=== PATIENT | female | born 1990 | race Caucasian/White ===

== ENCOUNTER → 2024-05-03 | Outpatient (CLI) | payer OTHER, SELFPAY ==
[2024-05-03 11:33] LABS: HIV - WCH Non-Reactive (Nonreactive); Hepatitis B Surface Antigen Non-Reactive (Nonreactive); Hepatitis C Antibody Non-Reactive (Nonreactive); Rubella IgG Reactive (Nonreactive); Syphilis Antibodies Non-reactive
== END | disposition home or self-care (01) ==
PROVIDERS: Referring Provider Obstetrics & Gynecology; Visit Provider Obstetrics & Gynecology
DX: O09.90 Supervision of high risk pregnancy, unspecified, unspecified trimester (principal); Z3A.00 Weeks of gestation of pregnancy not specified
CPT/HCPCS: 36415; 86703; 86762; 86780; 86803; 87340

== ENCOUNTER → 2024-06-30 | Outpatient (CLI) | payer OTHER, SELFPAY ==
[2024-06-30 15:37] LABS: Absolute Lymphocyte Count 1.12 X10^3/uL (0.83-4.51); Absolute Neutrophil Count 5.9 X10^3/uL (2.0-7.7); Basophil# 0.02 X10^3/uL; Basophil% 0.3 % (0-1); Eosinophil# 0.06 X10^3/uL; Eosinophils% 0.8 % (0-5); Hematocrit 36.8 % (37-47); Hemoglobin 12.1 g/dL (12.0-15.0); Lymphocyte # 1.12 X10^3/ul (0.83-4.51); Lymphocyte % 14.8 % (19-41); Mean Corp Hgb Conc 32.9 g/dL (32-36); Mean Corpuscular Hgb 29.7 pg (27.0-32.0); Mean Corpuscular Volume 90.4 fL (81-99); Mean Platelet Vol. 9.7 fl (6.2-12.0); Monocyte# 0.41 X10^3/uL; Monocyte% 5.4 % (0-10); NRBC Flagged by Analyzer 0 % (0-5); Neutrophil # 5.91 X10^3/uL (2.7-7.7); Neutrophil % 78.2 % (47-70); Platelet Count 200 K/mm3 (150-450); RBC Distribution Width CV 13.9 % (11.6-14.6); RBC Distribution Width SD 46.3 fl (35.1-43.9); Red Blood Count 4.07 M/mm3 (4.2-5.4); White Blood Count 7.6 K/mm3 (4.4-11.0)
[2024-06-30 15:52] LABS: Glucose Challenge Gest 1H 50g 105 mg/dL (70-140)
[2024-06-30 18:00] LABS: HIV - WCH Non-Reactive (Nonreactive); Syphilis Antibodies Non-reactive
== END | disposition home or self-care (01) ==
LOC: BWCLAB 14:42
PROVIDERS: Referring Provider Obstetrics & Gynecology; Visit Provider Obstetrics & Gynecology
DX: O09.90 Supervision of high risk pregnancy, unspecified, unspecified trimester (principal); Z3A.00 Weeks of gestation of pregnancy not specified; Z13.1 Encounter for screening for diabetes mellitus
CPT/HCPCS: 36415; 82950; 85025; 86703; 86780

== ENCOUNTER → 2024-08-23 | Outpatient (CLI) | payer OTHER, SELFPAY ==
[2024-08-23 16:19] LABS: Protein, Urine (Random) 90.8 mg/dL (<11.9); Protein:Creat Ratio 232 mg/g CRE (0-200)
== END | disposition home or self-care (01) ==
LOC: LABSPEC 15:44
PROVIDERS: Referring Provider Advanced Practice Midwife; Visit Provider Advanced Practice Midwife
DX: R80.9 Proteinuria, unspecified (principal)
CPT/HCPCS: 82570; 84156

== ENCOUNTER 2024-09-04 13:20 | Inpatient (IN) | payer OTHER, SELFPAY ==
[2024-09-04] VITALS (40 sets, daily range): BP systolic 133–194; BP diastolic 72–109; PULSE 55–99; RESP 12–19; TEMP 35.7–37.2; O2SAT 96–100; BMI 44.0
[2024-09-04 12:58] LABS: Hematocrit 39.4 % (37-47); Hemoglobin 13.4 g/dL (12.0-15.0); Mean Corpuscular Volume 88.1 fL (81-99); Mean Platelet Vol. 11.2 fl (6.2-12.0); Platelet Count 203 K/mm3 (150-450); RBC Distribution Width SD 41.7 fl (35.1-43.9); Red Blood Count 4.47 M/mm3 (4.2-5.4); White Blood Count 8.9 K/mm3 (4.4-11.0)
[2024-09-04] MEDS: Magnesium Sulfate 4gm/100mL 4 GM/100 ML IV.SOLN. IV (13:22)
[2024-09-04 13:26] LABS: AST(SGOT) 17 U/L (15-37); Alanine Aminotransfer ALT/SGPT 20 U/L (13-56); Creatinine, Serum 0.97 mg/dL (0.55-1.02); EST Glomerular Filtration Rate 69 mL/min (>60); Est Glom Filt Rate - Afr Amer 84 mL/min (>60); Uric Acid 6.5 mg/dL (2.6-6.0)
[2024-09-04] MEDS: hydrALAZINE 20 MG/ML Vial 10 MG IV (13:38)
[2024-09-04] MEDS: Magnesium Sulfate 4gm/100mL 2 GM/50 ML IV.SOLN. IV (13:39)
[2024-09-04 13:53] LABS: Protein:Creat Ratio 5495 mg/g CRE (0-200)
--- NOTE | 2024-09-04 14:25 | PRE.ANES_ITS ---
ASA Classification* ASA Classification ASA Classification: 3 Assessment & Plan Anesthesia* Anesthesia Assessment Anesthesia Assessment: Discussed sedation and/or anesthesia options, risks, benefits, and alternatives with patient/parents/legal guardian/POA. Questions invited. The patient/parents/legal guardian/POA seems to understand and agrees to proceed with anesthesia plan. Reviewed the physical assessment, medical history, allergy history and patient home medications list prior to surgery/procedure/anesthetic and documented any changes. Performed airway and anesthesia risk assessments. Anesthesia Type Anesthesia Type: Spinal History Source History Obtained from:: Patient Anesthesia Focused Assessment* Temperature: 99.0 F Pulse Rate: 99 Blood Pressure: 167/84 Respiratory Rate: 16 Pulse Ox: 99 Oxygen Delivery Method: Room Air Airway Assessment Mouth opens: 2 cm Mallampati Score: II Teeth Condition: Intact Neck Range of motion (ROM): Full ROM Focused Labs Anesthesia Preop lab: CBC WBC 8.9 K/mm3 (4.4-11.0) 09/04/24 12:45 RBC 4.47 M/mm3 (4.2-5.4) 09/04/24 12:45 Hgb 13.4 g/dL (12.0-15.0) 09/04/24 12:45 Hct 39.4 % (37-47) 09/04/24 12:45 Plt Count 203 K/mm3 (150-450) 09/04/24 12:45 CHEMISTRY Creatinine 0.97 mg/dL (0.55-1.02) 09/04/24 12:45 COAG Pre-Assessment Diagnosis/Proposed Procedure Planned Operative Procedure(s): c section Anesthesia History 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 When Was Last Pacemaker Check QUESTION #4 FULL TEXT: You/Your Family Experience fever (hyperthermia) with Anesthesia Any additional information?: No Last Oral Intake Last Oral intake: Last Oral Intake NPO since Meds taken in AM with sips of water? Meds patient instructed to take am of surgery Any additional information?: Yes NPO since: 10:00 PONV PONV - production maintenance technician: PONV - production maintenance technician Female HX of Motion Sickness HX of N/V After Surgery Non-Smoker Duration of Surgery greater than 60 minutes Number of Risk Factors PONV Score Any additional information?: No Height & Weight Height & Weight: Anesthesia: Height & Weight Height 5 ft 2 in 08/23/24 15:16 Respiratory Assessment Respiratory Assessment - production maintenance technician: Respiratory Tract Infection Hx - production maintenance technician Hx Respiratory Tract Infection Any additional information?: No STOP Sleep Apnea STOP Sleep Apnea - production maintenance technician: STOP Sleep Apnea - production maintenance technician Hx Hypertension Hx Sleep Apnea CPAP BIPAP Do you snore loudly (louder than talking or can be heard Do you often feel tired/ fatigued/ sleepy during daytime? Has anyone observed you stop breathing during sleep? STOP Results QUESTION #5 FULL TEXT : Do you snore loudly (louder than talking or can be heard through closed doors)? Any additional information?: No Tobacco Use History Tobacco Use History - production maintenance technician: Tobacco Use History - production maintenance technician Tobacco Use Smoking Status Never smoker 04/15/24 12:22 Hx Tobacco Use Years Smoking Packs Smoked per Day Smoking Cessation Date was within the last 15 years Hx Smoking Cessation Date Hx Smoking Cessation Counseling Any additional information?: No Hematologic Medial History Hematologic Hx - production maintenance technician: Hematologic Medical Hx - certified drug counselor Hx of Blood Transfusion Hx of Transfusion in last 3 Months Date of Last Transfusion (if within last 3 months) Ever experience any problems with transfusion(s)? Specify any problems Hx of Preganancy in last 3 Months Nurse Filling Out Transfusion & Questions: Date: Time: Patient unable to answer at this time (ie. confused, unrespo Any additional information?: No /Reproduction History /Reproductive History - production maintenance technician: /Reproductive Hx- production maintenance technician Hx Now Gestational Age (in weeks): EDC: Hx Hx Para Hx Section SAB No 08/23/24 15:16 Any additional information?: Yes Hx Now: Yes : Yes Active Medications Active Medications: Current Medications Generic Name Dose Route Start Last Admin Trade Name Freq PRN Reason Stop Dose Admin Hydralazine HCl 10 mg 09/04/24 13:22 Hydralazine 20 Mg/Ml Vial IV X1 PRN Elevated BP Calcium Gluconate 1 gm/ N/A 10 mls @ 2 mls/min 01/12/25 13:22 IV X1 PRN Magnesium Toxicity Magnesium Sulfate 20 gm in 500 mls @ 50 mls/hr 09/04/24 13:25 20gm/500ml IV .Q10H TACHO Protocol 2 GM/HR Labetalol HCl 20 mg 09/04/24 13:22 Labetalol 20mg/4ml Syringe IV X1 PRN Elevated BP Labetalol HCl 40 mg 09/04/24 13:22 Labetalol 100 Mg/20 Ml Vial IV X1 PRN Elevated BP Midazolam HCl 2 mg 09/04/24 13:22 Midazolam 2 Mg/2 Ml Syringe IV X1 PRN Seizure Activity [facility] Medical History Dermoid cyst Peritoneal bleeding Home Medications ?Medication ?Instructions ?Recorded ?Last Taken ?Type aspirin 81 mg chewable tablet 81 mg PO DAILY 04/15/24 Unknown History docosahexaenoic acid 200 mg mg PO 04/15/24 Unknown History capsule ( DHA) naltrexone 1.5 mg capsule mg PO 04/15/24 Unknown History Allergy/AdvReac Type Severity Reaction Status Date / Time chlorhexidine (From Allergy Intermediate Rash Verified 08/23/24 15:18 ChloraPrep Clear) Family History Father Testicle cancer Mother Hypothyroid Grandmother Diabetes Type 2 Grandmother Scoliosis Surgical History H/O cervical polypectomy H/O laparoscopy S/P ACL repair H/O section Social History adopted: No household members: spouse and children number of children: 1 current occupational status: employed 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 current occupational exposures/hazards: No pets and animals: Yes ( taking care of litter box) pets and animals: cat(s) history of recent travel: No sexually active: Yes Smoking Status: Never smoker alcohol intake: current alcohol intake frequency: holidays/special occasions only details: none while substance use type: does not use well-balanced diet: daily or most days caffeine: Yes Type: coffee eating out: rarely or never during the past year weight has: increased > 10 lbs what type of physical activity do you participate in: yoga frequency: 3-4 times per week duration: 45-60 minutes/day jack/confucianism: Confucianist seatbelt use: always do you feel safe at home: Yes additional social history: : [employer] - [employer] Review of Systems (Anesthesia) ROS Narrative System reviewed and no additional complaints, except as documented.
[2024-09-04] MEDS: Lactated Ringers 1,000 ML 999 ML IV (14:30)
[2024-09-04] MEDS: Acetaminophen 500 MG Tablet 1000 MG PO ×2 (14:37→21:17)
[2024-09-04] MEDS: Magnesium Sulfate 20 GM/500 ML BAG IV ×2 (14:38→14:48)
[2024-09-04] MEDS: Sodium Citrate/Citric Acid 30 ML UDC PO (14:38)
[2024-09-04] MEDS: Cefazolin 2 GM in Syringe IV (15:00)
[2024-09-04 16:01] LABS: Syphilis Antibodies Non-reactive
--- NOTE | 2024-09-04 16:09 | HP.PCM.OB_ITS ---
HPI - General General Date of Admission: 09/04/24 HPI Narrative KRISTIN SUAREZ, is a 33 F who presents at 35 weeks with swelling in her hands face and feet, [facility] 170s ove r100s. here they are 180s over 100s. we are proceeding with RLTCS for severe preeclampsia Maternal Data Information YAZMIN Calculator Estimated Delivery Date Method Current WG Current Estimate 10/03/24 Manual 35w 6d Transfer da te 01/16/24 PFSH PFS Medical History Dermoid cyst Peritoneal bleeding Home Medications ?Medication ?Instructions ?Recorded ?Last Taken ?Type aspirin 81 mg chewable tablet 81 mg PO DAILY 04/15/24 Unknown History docosahexaenoic acid 200 mg mg PO 04/15/24 Unknown History capsule ( DHA) naltrexone 1.5 mg capsule mg PO 04/15/24 Unknown History Allergy/AdvReac Type Severity Reaction Status Date / Time chlorhexidine (From Allergy Intermediate Rash Verified 08/23/24 15:18 ChloraPrep Clear) Family History Father Testicle cancer Mother Hypothyroid Grandmother Diabetes Type 2 Grandmother Scoliosis Surgical History H/O cervical polypectomy H/O laparoscopy S/P ACL repair H/O section Social History adopted: No household members: spouse and children number of children: 1 current occupational status: employed 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 current occupational exposures/hazards: No pets and animals: Yes ( taking care of litter box) pets and animals: cat(s) history of recent travel: No sexually active: Yes Smoking Status: Never smoker alcohol intake: current alcohol intake frequency: holidays/special occasions only details: none while substance use type: does not use well-balanced diet: daily or most days caffeine: Yes Type: coffee eating out: rarely or never during the past year weight has: increased > 10 lbs what type of physical activity do you participate in: yoga frequency: 3-4 times per week duration: 45-60 minutes/day jack/adventist: Confucianist seatbelt use: always do you feel safe at home: Yes additional social history: : [employer] - [employer] History 2 Elective abortions Hx Para 1 Spontaneous abortions Hx # Term Pregnancies 1 Ectopic pregnancies Hx # Pregnancies Multiple births # of living children 1 Past Pregnancies Del. Date Name GA/Weeks Outcome Route Bth Weight Infant Gen Labor Lgth Anesthesia Del Locatn Provider FOB 08/22/19 [place] 39 live - full term 8lbs 14oz Male spinal [facility] Bobby Boyd 11/22/22 Failed IVF transfer Delivery Date: 08/22/19 Last Updated by: Desire Ponce RN Breech Visit Details Expected Delivery Route/Plan plan RLTCS if spontaneous labor, RLTCS or IOL 39 if not. chance of success is 55.7% Labor Preferences- CB/BF classes: [] labor support person: [] labor intervention preferences: [] pain management options preferred: [] cut cord/dad catch: [] : [] PP control planned: [] discussed possible routes of delivery and associated risks: [] special requests: [] Plans Covid status: [] Flu vaccine: given Tdap vaccine: given Rhogam: na LARC form signed: declined movement and labor precautions reviewed. Problem list reviewed and updated with the most current plan of care details and appropriate orders placed. Relevant counseling for the gestational age provided. Continue routine care and follow up unless otherwise noted in visit notes/problem list details OB Flowsheet Initial Weight: Not Recorded Date -?-?-?-?-?-?-?-?-?-?-?-?- EGA Weight BP Urine Prot -?-?-?-?-?-?-?-?-?-?-?-?- Glucose FHR FuHt Pres Dilation -?-?-?-?-?-?-?-?-?-?-?-?- Effaced St Visit Note 05/03/24 -?-?-?-?-?-?-?-?-?-?-?-?- 18w 1d 192 lb 120/77 Negative -?-?-?-?-?-?-?-?-?-?-?-?- Negative 150 -?-?-?-?-?-?-?-?-?-?-?-?- SM- no vb crmapi ng, [facility] 06/03/24 -?-?-?-?-?-?-?-?-?-?-?-?- 22w 4d 201 lb 103/72 Negative -?-?-?-?-?-?-?-?-?-?-?-?- Negative 144 -?-?-?-?-?-?-?-?-?-?-?-?- JV- anatomy scan was incomplete. Has c/o not sleeping well. questions about flu vaccine and questions about success. 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 tdap today. has cs scheduled incase does not happen. 07/25/24 -?-?-?-?-?-?-?-?-?-?-?-?- 30w 0d 207 lb 111/72 Negative -?-?-?-?-?-?-?-?-?-?-?-?- Negative 140 31 -?-?-?-?-?-?-?-?-?-?-?-?- SM- no vb lof go od fm no regular ctx larc signed 08/11/24 -?-?-?-?-?-?--?-?-?-?-?-?- 32w 3d 212 lb 6 oz 114/79 Nega tive -?-?-?-?-?-?-?-?-?-?-?-?- Negative 133 32 -?-?-?-?-?-?-?-?-?-?-?-?- JV- no lof, vagi nal bleeding, or dec fm. had growth scan today. pending. 08/18/24 -?-?-?-?-?-?-?-?-?-?-?-?- 33w 3d 217 lb 6 oz 115/76 Nega tive -?-?-?-?-?-?-?-?-?-?-?-?- Negative 141 33 -?-?-?-?-?-?-?-?-?-?-?-?- -work in for ? enlarged lymph node bilateral axilla. Noting more swelling lower legs, fingers, lips. No pitting edema. States lots of sodium intake with holidays. No vision changes, headaches. Peasized mobile lymph node each axilla. Just finished antibiotic for resp infection/reassured Call if increase size/persists and get U S. 08/23/24 -?-?-?-?-?-?-?-?-?-?-?-?- 34w 1d 218 lb 6 oz 117/80 -?-?-?-?-?-?-?-?-?-?-?-?- 135 34 -?-?-?-?-?-?-?-?-?-?-?-?- KW- No vb/lof/ct x. good fm. no urban/dizziness/BV. pc ratio sent but had GI bug over the last week. NST FHR Rate Baby A Baseline: 130 Variability:: Moderate Accelerations:: 15 x 15 Decelerations:: None NST Reactive:: Yes FHR Category:: Category I Uterine Activity:: irregular ROS Constitutional Constitutional: Reports systems reviewed and no addt'l complaints, except as documented Eyes Eyes: Denies change in vision ENT HEENT: Reports systems reviewed and no addt'l complaints, except as documented; Denies headache(s) Cardiovascular Cardiovascular: Reports systems reviewed and no addt'l complaints, except as documented; Denies chest pain or dyspnea Respiratory/Chest Respiratory/Chest: Reports systems reviewed and no addt'l complaints, except as documented Gastrointestinal Gastrointestinal: Reports systems reviewed and no addt'l complaints, except as documented; Denies abdominal pain Genitourinary Genitourinary: Reports systems reviewed and no addt'l complaints, except as documented, contractions Details: present (irregular) and movement Details: present; Denies dysuria or genital lesions Musculoskeletal Musculoskeletal: Reports systems reviewed and no addt'l complaints, except as documented Neurologic Neurologic: Reports systems reviewed and no addt'l complaints, except as d ocumented Endocrine Endocrinology: Reports systems reviewed and no addt'l complaints, except as documented Vital Signs Vital Signs Vital Signs: 09/04/24 12:20 09/04/24 12:20 09/04/24 12:20 Temperature Temperature Source Tympanic Pulse Rate Respiratory Rate 16 Blood Pressure BP Systolic BP Diastolic Pulse Ox 99 Oxygen Delivery Method 09/04/24 12:20 09/04/24 12:52 09/04/24 12:52 Temperature 99.0 F Temperature Source Pulse Rate 56 L Respiratory Rate Blood Pressure BP Systolic BP Diastolic Pulse Ox 99 Oxygen Delivery Method 09/04/24 12:57 09/04/24 12:57 09/04/24 13:13 Temperature Temperature Source Pulse Rate 58 L Respiratory Rate Blood Pressure 179/97 H 190/95 H BP Systolic 179 190 BP Diastolic 97 95 Pulse Ox Oxygen Delivery Method 09/04/24 13:13 09/04/24 13:22 09/04/24 13:22 Temperature Temperature Source Pulse Rate 55 L 56 L Respiratory Rate Blood Pressure 181/98 H BP Systolic 181 BP Diastolic 98 Pulse Ox Oxygen Delivery Method 09/04/24 13:32 09/04/24 13:32 09/04/24 13:38 Temperature Temperature Source Pulse Rate 65 65 Respiratory Rate Blood Pressure 191/106 H 191/106 H BP Systolic 191 BP Diastolic 106 Pulse Ox Oxygen Delivery Method 09/04/24 13:42 09/04/24 13:42 09/04/24 13:52 Temperature Temperature Source Pulse Rate 59 L Respiratory Rate Blood Pressure 194/106 H 184/98 H BP Systolic 194 184 BP Diastolic 106 98 Pulse Ox Oxygen Delivery Method 09/04/24 13:52 09/04/24 14:02 09/04/24 14:02 Temperature Temperature Source Pulse Rate 75 91 Respiratory Rate Blood Pressure 150/81 H BP Systolic 150 BP Diastolic 81 Pulse Ox Oxygen Delivery Method 09/04/24 14:13 09/04/24 14:13 09/04/24 14:28 Temperature 99.0 F Temperature Source Pulse Rate 99 99 Respiratory Rate 16 Blood Pressure 167/84 H 167/84 H BP Systolic 167 BP Diastolic 84 Pulse Ox 99 Oxygen Delivery Method Room Air Weight Weight: 241 lb Body Mass Index (BMI) 44.0 Physical Exam Const alert, oriented x3, no apparent distress and healthy appearing HEENT normocephalic and moist oral mucous membranes Head and Scalp: atraumatic Neck full ROM, no lymphadenopathy, supple and thyroid normal General: trachea midline Lymph Lymphatic: no lymphadenopathy noted Chest inspection of chest normal Resp normal respiratory effort Cardio regular rate GI soft to palpation and non-tender GI Narrative: gravid Inspection: gravid external exam normal Manual OB Exam: estimated gestational size appropriate, presentation cephalic, dilated, effaced and station Extremity normal to inspection General Extremity: edema bilateral (4+) Skin no rashes or lesions noted Neuro no focal motor deficits and deep tendon reflexes 2+ bilaterally Motor Exam: strength 5/5 throughout and clonus absent Psych mental status grossly normal Labs Labs Labs: Blood Type A POSITIVE Antibody Screen NEGATIVE Hct 39.4 % (37-47) Hgb 13.4 g/dL (12.0-15.0) Syphilis Total Ab Non-reactive Rubella IgG Antibody Reactive (Nonreactive) Hep Bs Antigen Non-Reactive (Nonreactive) Hepatitis C Antibody Non-Reactive (Nonreactive) HIV 1&2 Antibody Non-Reactive (Nonreactive) Glucose 1 Hr 50 gm 105 mg/dL (70-140) Assessment & Plan (1) History of delivery, currently : COMMENT: x1: 2019 for breech... wants to discuss risk/benefits of vs repeat csec RLTCS scheduled for 09/28 @ 7:15 with SM (2) resulting from in-vitro fertilization: COMMENT: Transfer date 01/15 normal echo- growth at 28,34 weeks. 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 (7) Preeclampsia, severe: (8) delivery delivered: PLAN: Plan proceed with RLTCS ervix closed not a candidate for
--- NOTE | 2024-09-04 16:14 | EX.PCM.OBRPT ---
Assessment & Plan (1) Preeclampsia, severe: (2) delivery delivered: COMMENT: RLTCS severe preeclampsia girl josefina Jones Maternal Data Information YAZMIN Calculator Estimated Delivery Date Method Current WG Current Estimate 10/03/24 Manual 35w 6d Transfer date 01/16/24 Final YAZMIN Source: LMP Operative Report (OB) Cecarean Details Procedure Type: low transverse Date of Procedure: 09/04/24 Procedure Start Time: 14:44 Procedure Stop Time: 15:55 Pre-Operative Diagnosis: Other Other Pre-Operative diagnosis: see a/p comments Post-Operative Diagnosis: Same as Pre-operative diagnosis Type of Anesthesia: Spinal Special Medications: none Antibiotic Given: Ancef 2 grams IV x1 Drain: Mancini to straight drain Estimated Blood Loss: 600 Fluids Replaced: crystalloid Findings Description of surgery: Spinal anesthesia was placed without difficulty. Mancini catheter was placed. The patient was placed in the dorsal supine position with leftward tilt. Patient was prepped and draped in the normal sterile fashion. Pfannenstiel skin incision was made with the scalpel and carried through to the underlying layer of fascia with the scalpel. severe edema was noted in the tissues. Fascia was nicked in the midline and the incision extended laterally. The rectus bellies were dissected off superiorly and inferiorly with out complication both sharply and bluntly. The peritoneum was entered digitally. The incision was stretched and a low transverse uterine incision was made with the scalpel. The infant's head was delivered atraumatically followed by the anterior and posterior shoulders without complication the rest of the delivered. The cord was clamped and cut and the infant was handed off to awaiting nurse. The placenta was delivered spontaneously immediately following and was noted to be intact and have a three-vessel cord. The uterus was exteriorized cleared of all clots and debris, and the incision was closed in a single layer closure using #1 Monocryl. The ovaries and fallopian tubes were noted to be within normal limits. The uterus was returned to the maternal abdomen and gutters were cleared of all clots and debris. The peritoneum was closed with 3-0 Monocryl in a running fashion. Fascia was closed with 0 PDS in a running fashion. Subcutaneous tissue was copiously irrigated and the skin was closed with 3-0 Monocryl in a subcuticular fashion. Mepilex dressing was applied without complication. Patient was taken to recovery in stable condition. Surgical findings: nl uterus tubes ovaries Presentation: Vertex Amniotic Membrane Rupture Type: Artificial Amniotic Fluid Description: Clear Specimen collected: Yes Description of specimen(s) removed: placenta and baby Cord Vessel Description: 3 Vessels Delayed Cord Clamping: Yes Industrial Nurse applications specialist: Yes Coal Cutter: Prashant Bass Tasks completed by airline pilot/first officer: Opening & closing, Retracting and Other (assisting in delivery of the ) Additional high school assistant principal?: No Complications Complications: No Admit VTE Documentation VTE Present on Admission: No VTE Mechan Device Prophylaxis: SCD's Procedures Urinary/Genital [id number]: [id number] Delivery [facility]
[2024-09-04] MEDS: Oxytocin 15 Units/NS 250ml 15 UNITS/250 ML IV.SOLN 83 UNITS IV (16:15)
--- NOTE | 2024-09-04 16:18 | DCINST_ITS ---
Discharge Instructions Diet Discharge Diet: No restrictions DC O2, CPAP, BIPAP needs Home O2 Discharge instructions: No Dressing / Incision Discharge Activity: May Not Drive (for 2 weeks or while taking narcotic pain medications.), May Shower and May Take a Tub Bath (in 7 days) May shower in (days): 0 May resume sexual activity in: 4-6 weeks Weight Bearing Status: Full weight bearing Lifting Restrictions: 20 pounds Dressing / Incision Call your doctor if your incision/area has: Continuous Slow Oozing, Sudden Increased Bleeding, Increased Pain/ Swelling, Increased Redness and Foul Smelling Discharge Call your doctor if you observe: Fever of 101 or Higher and Using more than 1 pad per hour (for 2 hours) Suture Line Care: Avoid Pulling/Pushing and Avoid Pinching/Bending Cleanse incision/area with: Soap & Water and Keep Dressing Clean & Dry Follow Up Care Please Follow Up With: Felisa Love MD When: Call [phone] to make an appointment for an incision check in 1-2 weeks. Test Results: Test results from this visit will be discussed in further detail at your follow- up appointment, if applicable. Discharge Plan Admission Admit Date/Time: 09/04/24 13:20 Attending Provider: Tawny Martínez Discharge Orders/Prescriptions Prescriptions: New oxycodone-acetaminophen [Percocet] 5-325 mg tablet 1 tab PO Q4H PRN (Reason: pain) 7 Days Qty: 20 0RF naproxen 500 mg tablet 500 mg PO BID PRN PRN (Reason: Pain) Qty: 30 1RF No Action DHA 200 mg capsule PO naltrexone 1.5 mg capsule PO Patient Comments: Per [facility] - to take through whole aspirin 81 mg tablet,chewable 81 mg PO DAILY Disposition Disposition (needs filled in before D/C Order can be placed): Home, Self Care
[2024-09-04] MEDS: Lactated Ringers 1,000 ML 50 ML IV (21:13)
[2024-09-04] MEDS: NIFEdipine 10 MG Capsule PO (21:58)
[2024-09-04] MEDS: 0.9% Saline Lock 10 ML Syringe IV ×2 (21:59→22:00)
[2024-09-04 22:12] LABS: Absolute Lymphocyte Count 0.89 X10^3/uL (0.83-4.51); Absolute Neutrophil Count 16.7 X10^3/uL (2.0-7.7); Basophil# 0.04 X10^3/uL; Basophil% 0.2 % (0-1); Eosinophil# 0.02 X10^3/uL; Eosinophils% 0.1 % (0-5); Hematocrit 42.8 % (37-47); Hemoglobin 14.5 g/dL (12.0-15.0); Lymphocyte # 0.89 X10^3/ul (0.83-4.51); Lymphocyte % 4.9 % (19-41); Mean Corp Hgb Conc 33.9 g/dL (32-36); Mean Corpuscular Hgb 29.8 pg (27.0-32.0); Mean Corpuscular Volume 87.9 fL (81-99); Mean Platelet Vol. 10.9 fl (6.2-12.0); Monocyte# 0.28 X10^3/uL; Monocyte% 1.6 % (0-10); NRBC Flagged by Analyzer 0 % (0-5); Neutrophil # 16.69 X10^3/uL (2.7-7.7); Neutrophil % 92.6 % (47-70); Platelet Count 218 K/mm3 (150-450); RBC Distribution Width CV 13.1 % (11.6-14.6); RBC Distribution Width SD 41.5 fl (35.1-43.9); Red Blood Count 4.87 M/mm3 (4.2-5.4)
[2024-09-04 22:29] LABS: ALB/GLOB Ratio 0.7 RATIO (0.9-2.4); AST(SGOT) 22 U/L (15-37); Alanine Aminotransfer ALT/SGPT 20 U/L (13-56); Albumin, Serum 2.3 g/dL (3.2-5.0); Alkaline Phosphatase 98 U/L (45-117); Anion Gap 9 (5-15); BUN 22 mg/dL (7-18); BUN/Creat Ratio 21.4 RATIO (10-20); Calcium,Total 7.9 mg/dL (8.5-10.1); Chloride 108 mmol/L (98-107); Creatinine, Serum 1.03 mg/dL (0.55-1.02); EST Glomerular Filtration Rate 65 mL/min (>60); Est Glom Filt Rate - Afr Amer 78 mL/min (>60); Globulin 3.5 g/dL (2.2-4.2); Glucose 127 mg/dL (74-106); Potassium 4.4 mmol/L (3.5-5.1); Protein, Total 5.8 g/dL (6.4-8.2); Sodium Level 138 mmol/L (136-145)
[2024-09-04] MEDS: NIFEdipine 30 MG Tablet PO (23:19)
[2024-09-05] VITALS (222 sets, daily range): BP systolic 121–176; BP diastolic 69–94; PULSE 85–124; RESP 14–18; TEMP 36.3–36.8; O2SAT 85–99
[2024-09-05] MEDS: Magnesium Sulfate 20 GM/500 ML BAG IV ×2 (00:53→11:03)
[2024-09-05] MEDS: 0.9% Saline Lock 10 ML Syringe IV ×3 (01:42→20:16)
[2024-09-05] MEDS: Ketorolac 30 MG/ML Syringe IV ×4 (01:43→20:16)
[2024-09-05] MEDS: Acetaminophen 500 MG Tablet 1000 MG PO ×4 (04:48→23:41)
[2024-09-05 05:50] LABS: Hematocrit 35.3 % (37-47); Mean Corpuscular Hgb 29.9 pg (27.0-32.0); Mean Platelet Vol. 10.6 fl (6.2-12.0); Platelet Count 206 K/mm3 (150-450); RBC Distribution Width CV 13.2 % (11.6-14.6); RBC Distribution Width SD 42.7 fl (35.1-43.9); Red Blood Count 4.01 M/mm3 (4.2-5.4); White Blood Count 16.3 K/mm3 (4.4-11.0)
[2024-09-05 06:07] LABS: ALB/GLOB Ratio 0.7 RATIO (0.9-2.4); AST(SGOT) 17 U/L (15-37); Alanine Aminotransfer ALT/SGPT 18 U/L (13-56); Albumin, Serum 2.1 g/dL (3.2-5.0); Alkaline Phosphatase 83 U/L (45-117); Anion Gap 5 (5-15); BUN 22 mg/dL (7-18); BUN/Creat Ratio 20.2 RATIO (10-20); Calcium,Total 7.4 mg/dL (8.5-10.1); Chloride 109 mmol/L (98-107); Creatinine, Serum 1.09 mg/dL (0.55-1.02); EST Glomerular Filtration Rate 60 mL/min (>60); Est Glom Filt Rate - Afr Amer 73 mL/min (>60); Estimated Creatinine Clearance 83.91 ml/min; Glucose 131 mg/dL (74-106); Potassium 4.6 mmol/L (3.5-5.1); Protein, Total 5.1 g/dL (6.4-8.2); Sodium Level 136 mmol/L (136-145)
[2024-09-05] MEDS: Enoxaparin 40 MG/0.4 ML Syringe SC ×2 (06:54→18:40)
[2024-09-05] MEDS: NIFEdipine 30 MG Tablet PO ×2 (09:56→14:01)
[2024-09-05] MEDS: Senna/Docusate Sodium 1 Tablet PO (10:50)
[2024-09-05] MEDS: Lactated Ringers 1,000 ML 999 ML IV (12:40)
[2024-09-05] MEDS: NIFEdipine 10 MG Capsule PO (14:06)
--- NOTE | 2024-09-05 15:33 | PCM.PN.OB ---
Subjective Subjective Patient improving pain controlled still has significant swelling some intermitten tblurry vision, positional, sinus and chest congestion. feels puffy. now starting to diurese and heart rate decreasin with ICF bolus. magnesium off now, watch bps. Tolerating PO. feeding well. Denies chest pain, fevers, chills, lightheadedness. Objective Data Objective Data Vital Signs: Vital Signs Temp Pulse Resp BP Pulse Ox O2 Del Method 98.1 F 95 16 130/75 H 98 Room Air 09/05/24 09:45 09/05/24 15:29 09/05/24 14:38 09/05/24 15:24 09/05/24 15:29 09/05/24 14:37 Oxygen Delivery Method Room Air Weight: 241 lb Body Mass Index (BMI) 44.0 Intake & Output: Intake and Output for Last 24 Hours 09/03/24 09/04/24 09/05/24 23:59 23:59 23:59 Intake Total 1758.33 / 1758.33 2676.67 / 2676.67 Output Total 920 / 920 1212 / 1212 Balance 838.33 / 838.33 1464.67 / 1464.67 Lab / Micro Data 09/05/24 05:40 09/05/24 05:40 Labs: Laboratory Results - last 24 hr 09/04/24 14:15: Syphilis Total Ab Non-reactive 09/04/24 22:00: WBC 18.0 H, RBC 4.87, Hgb 14.5, Hct 42.8, MCV 87.9, MCH 29.8, MCHC 33.9, RDW Std Deviation 41.5, RDW Coeff of Damaso 13.1, Plt Count 218, MPV 10.9, Immature Gran % (Auto) 0.600, Neut % (Auto) 92.6 H, Lymph % (Auto) 4.9 L, [place] % (Auto) 1.6, Eos % (Auto) 0.1, Baso % (Auto) 0.2, Absolute Neuts (auto) 16.7 H, Absolute Lymphs (auto) 0.89, Nucleated RBC % 0, Sodium 138, Potassium 4.4, Chloride 108 H, Carbon Dioxide 21.0, Anion Gap 9, BUN 22 H, Creatinine 1.03 H, Estim Creat Clear Calc 88.80, Est GFR (MDRD) Af Amer 78, Est GFR (MDRD) Non-Af 65, BUN/Creatinine Ratio 21.4 H, Glucose 127 H, Calcium 7.9 L, Total Bilirubin 0.30, AST 22, ALT 20, Alkaline Phosphatase 98, Total Protein 5.8 L, Albumin 2.3 L, Globulin 3.5, Albumin/Globulin Ratio 0.7 L 09/05/24 05:40: WBC 16.3 H, RBC 4.01 L, Hgb 12.0, Hct 35.3 L, MCV 88.0, MCH 29.9, MCHC 34.0, RDW Std Deviation 42.7, RDW Coeff of Damaso 13.2, Plt Count 206, MPV 10.6, Sodium 136, Potassium 4.6, Chloride 109 H, Carbon Dioxide 22.0, Anion Gap 5, BUN 22 H, Creatinine 1.09 H, Estim Creat Clear Calc 83.91, Est GFR (MDRD) Af Amer 73, Est GFR (MDRD) Non-Af 60, BUN/Creatinine Ratio 20.2 H, Glucose 131 H, Calcium 7.4 L, Total Bilirubin 0.20, AST 17, ALT 18, Alkaline Phosphatase 83, Total Protein 5.1 L, Albumin 2.1 L, Globulin 3.0, Albumin/Globulin Ratio 0.7 L ROS Constitutional Constitutional: Reports systems reviewed and no addt'l complaints, except as documented Cardiovascular Cardiovascular: Reports systems reviewed and no addt'l complaints, except as documented Respiratory/Chest Respiratory/Chest: Reports systems reviewed and no addt'l complaints, except as documented Gastrointestinal Gastrointestinal: Reports systems reviewed and no addt'l complaints, except as documented Physical Exam Const alert, oriented x3 and no apparent distress HEENT Head and Scalp: atraumatic Resp normal respiratory effort GI soft to palpation and non-tender Inspection: incision intact, healing well and drainage (bandage changed silver applied binder reapplied) Bimanual Exam - Vag & Uterus: uterus non-tender Uterus Palpation: uterus fundus firm (below Umbilicus) Assessment & Plan (1) Preeclampsia, severe: COMMENT: 60 mg procardia start , off magnesium sulfate now. continue to monitor (2) delivery delivered: COMMENT: RLTCS severe preeclampsia girl loralie 33 PLAN: Plan s/p LTCS PPD # 1 1. routine post care 2. breast feeding- support given 3. rh positive 4. rubella immune 5. severe preeclampsia s/p magnesium sulfate, on procardia 60 mg. monitor serial labs. continuing to diurese.
[2024-09-05] MEDS: SimETHICONE 80 MG Chewable Tablet PO (16:15)
[2024-09-05] MEDS: oxyCODONE 5 MG Tablet PO ×3 (16:48→23:59)
[2024-09-05] MEDS: Furosemide 20 MG/2 ML VIAL 10 MG IV (18:40)
--- NOTE | 2024-09-06 00:01 | PN.OBGYN_ITS ---
Subjective Subjective CNM called to bedside for evaluation of incision. After being up and moving around dressing became saturated with serosanguineous fluid and dressing required to be changed. Dressing removed and replaced. No sign of infection when dressing was changed. New silver Mepilex was placed over the incision and pressure applied. Objective Data Objective Data Vital Signs: Vital Signs Temp Pulse Resp BP Pulse Ox O2 Del Method 98.0 F 99 16 140/77 H 96 Room Air 09/05/24 22:45 09/05/24 22:45 09/05/24 22:45 09/05/24 22:45 09/05/24 22:45 09/05/24 22:45 Oxygen Delivery Method Room Air Weight: 241 lb Body Mass Index (BMI) 44.0 Intake & Output: Intake and Output for Last 24 Hours 09/04/24 09/05/24 09/06/24 23:59 23:59 23:59 Intake Total 1758.33 / 1758.33 3676.67 / 3676.67 Output Total 920 / 920 2862 / 2862 Balance 838.33 / 838.33 814.67 / 814.67 Lab / Micro Data 09/05/24 05:40 09/05/24 05:40 Labs: Laboratory Results - last 24 hr 09/05/24 05:40: WBC 16.3 H, RBC 4.01 L, Hgb 12.0, Hct 35.3 L, MCV 88.0, MCH 29.9, MCHC 34.0, RDW Std Deviation 42.7, RDW Coeff of Damaso 13.2, Plt Count 206, MPV 10.6, Sodium 136, Potassium 4.6, Chloride 109 H, Carbon Dioxide 22.0, Anion Gap 5, BUN 22 H, Creatinine 1.09 H, Estim Creat Clear Calc 83.91, Est GFR (MDRD) Af Amer 73, Est GFR (MDRD) Non-Af 60, BUN/Creatinine Ratio 20.2 H, Glucose 131 H , Calcium 7.4 L, Total Bilirubin 0.20, AST 17, ALT 18, Alkaline Phosphatase 83, Total Protein 5.1 L, Albumin 2.1 L, Globulin 3.0, Albumin/Globulin Ratio 0.7 L ROS Constitutional Constitutional: Reports systems reviewed and no addt'l complaints, except as documented; Denies anorexia or headache(s) Cardiovascular Cardiovascular: Reports systems reviewed and no addt'l complaints, except as documented; Denies dizziness, dyspnea, nausea or tachypnea Respiratory/Chest Respiratory/Chest: Reports systems reviewed and no addt'l complaints, except as documented; Denies cough, dyspnea, shortness of breath at rest or tachypnea Gastrointestinal Gastrointestinal: Reports systems reviewed and no addt'l complaints, except as documented; Denies abdominal pain, constipation or nausea Genitourinary Genitourinary: Reports systems reviewed and no addt'l complaints, except as documented; Denies burning urination, difficulty urinating, dysuria, urinary frequency or urinary incontinence Musculoskeletal Musculoskeletal: Reports systems reviewed and no addt'l complaints, except as documented Integumentary Integumentary: Reports systems reviewed and no addt'l complaints, except as documented Neurologic Neurologic: Reports systems reviewed and no addt'l complaints, except as documented; Denies abnormal speech, dizziness or headache(s) Psychiatric Psychiatric: Reports systems reviewed and no addt'l complaints, except as documented Endocrine Endocrinology: Reports systems reviewed and no addt'l complaints, except as documented Hematologic/Lymphatic Hematologic/Lymphatic: Reports systems reviewed and no addt'l complaints, except as documented Physical Exam Const alert, oriented x3 and no apparent distress Neck full ROM Resp normal respiratory effort, normal air movement and no retractions Effort and Inspection: able to speak in complete sentences and symmetric chest movement GI soft to palpation Inspection: incision intact, healing well and drainage Bladder / Kidney Exam: bladder normal to palpation Uterus Palpation: uterus fundus firm Extremity normal to inspection and full ROM Psych mental status grossly normal, thought process normal and cooperative Assessment & Plan (1) Preeclampsia, severe: COMMENT: 60 mg procardia start , off magnesium sulfate now. continue to monitor (2) delivery delivered: COMMENT: RLTCS severe preeclampsia girl loralie 33 (3) Axillary lymphadenopathy: COMMENT: bilat, <1cm. recent antibiotic for URI. Reassured. Report changes (4) AMA (advanced maternal age) multigravida 35+: QUALIFIERS: Trimester: third trimester Qualified Code(s): O09.523 - Supervision of elderly multigravida, third trimester COMMENT: screening recommendations based on IVF recommendations. 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 weekly NSTs at 36 weeks (9) History of delivery, currently : COMMENT: x1: 2019 for breech... wants to discuss risk/benefits of vs repeat csec RLTCS scheduled for 09/28 @ 7:15 with SM (10) Dermoid cyst: COMMENT: - evaluate at c section/. [id number], right side. appeared normal at delivery. plan fu US at 6 weeks PP Charges/Coding Multi Select Codes Urinary/Genital Urinary/Genital CPT Codes: No Charge
--- NOTE | 2024-09-06 00:09 | NURSING ---
Call placed to [facility] at 2310 by this RN due to copious amount of drainage on patient mepilex dressing. Informed provider that patient reported feeling a gush of fluid after ambulating back into bed. Mepilex appeared to be saturated and drainage began leaking out of the side of the dressing. Provider states they will be in to assess and change the dressing
[2024-09-06] MEDS: Naproxen 500 MG Tablet PO ×3 (01:31→17:41)
[2024-09-06 03:25] VITALS: BP 136/74; PULSE 97; PULSE 98; RESP 14; TEMP 37; O2SAT 97
[2024-09-06] MEDS: Acetaminophen 500 MG Tablet 1000 MG PO ×4 (04:44→23:57)
[2024-09-06] MEDS: hydrOXYzine PAM 25 MG Capsule PO (04:44)
[2024-09-06] MEDS: Labetalol 200 MG Tablet PO ×3 (07:45→22:25)
[2024-09-06] MEDS: Enoxaparin 40 MG/0.4 ML Syringe SC ×2 (07:46→18:41)
--- NOTE | 2024-09-06 07:49 | PN.OBGYN_ITS ---
Subjective Subjective had some SOB when laying down overnihgt, starting to diurese now, dressing changed still edematous severe, facial swelling decreasing, patient feeling anxious overnight. pain fairly controlled but trouble ambulating due to pain. Objective Data Objective Data Vital Signs: Vital Signs Temp Pulse Resp BP Pulse Ox O2 Del Method 98.6 F 97 14 136/74 H 97 Room Air 09/06/24 03:25 09/06/24 03:25 09/06/24 03:25 09/06/24 03:25 09/06/24 03:25 09/06/24 03:25 Oxygen Delivery Method Room Air Weight: 241 lb Body Mass Index (BMI) 44.0 Intake & Output: Intake and Output for Last 24 Hours 09/04/24 09/05/24 09/06/24 23:59 23:59 23:59 Intake Total 1758.33 / 1758.33 3676.67 / 3676.67 Output Total 920 / 920 2862 / 2862 2600 / 2600 Balance 838.33 / 838.33 814.67 / 814.67 -2600 / -2600 Lab / Micro Data 09/05/24 05:40 09/05/24 05:40 Labs: Laboratory Results - last 24 hr 09/04/24 14:15: Syphilis Total Ab Non-reactive 09/04/24 22:00: WBC 18.0 H, RBC 4.87, Hgb 14.5, Hct 42.8, MCV 87.9, MCH 29.8, MCHC 33.9, RDW Std Deviation 41.5, RDW Coeff of Damaso 13.1, Plt Count 218, MPV 10.9, Immature Gran % (Auto) 0.600, Neut % (Auto) 92.6 H, Lymph % (Auto) 4.9 L, [place] % (Auto) 1.6, Eos % (Auto) 0.1, Baso % (Auto) 0.2, Absolute Neuts (auto) 16.7 H, Absolute Lymphs (auto) 0.89, Nucleated RBC % 0, Sodium 138, Potassium 4.4, Chloride 108 H, Carbon Dioxide 21.0, Anion Gap 9, BUN 22 H, Creatinine 1.03 H, Estim Creat Clear Calc 88.80, Est GFR (MDRD) Af Amer 78, Est GFR (MDRD) Non- Af 65, BUN/Creatinine Ratio 21.4 H, Glucose 127 H, Calcium 7.9 L, Total Bilirubin 0.30, AST 22, ALT 20, Alkaline Phosphatase 98, Total Protein 5.8 L, A lbumin 2.3 L, Globulin 3.5, Albumin/Globulin Ratio 0.7 L 09/05/24 05:40: WBC 16.3 H, RBC 4.01 L, Hgb 12.0, Hct 35.3 L, MCV 88.0, MCH 29.9, MCHC 34.0, RDW Std Deviation 42.7, RDW Coeff of Damaso 13.2, Plt Count 206, MPV 10.6, Sodium 136, Potassium 4.6, Chloride 109 H, Carbon Dioxide 22.0, Anion Gap 5, BUN 22 H, Creatinine 1.09 H, Estim Creat Clear Calc 83.91, Est GFR (MDRD) Af Amer 73, Est GFR (MDRD) Non-Af 60, BUN/Creatinine Ratio 20.2 H, Glucose 131 H , Calcium 7.4 L, Total Bilirubin 0.20, AST 17, ALT 18, Alkaline Phosphatase 83, Total Protein 5.1 L, Albumin 2.1 L, Globulin 3.0, Albumin/Globulin Ratio 0.7 L ROS Constitutional Constitutional: Reports systems reviewed and no addt'l complaints, except as documented Cardiovascular Cardiovascular: Reports systems reviewed and no addt'l complaints, except as documented Respiratory/Chest Respiratory/Chest: Reports systems reviewed and no addt'l complaints, except as documented Gastrointestinal Gastrointestinal: Reports systems reviewed and no addt'l complaints, except as documented Physical Exam Const alert, oriented x3 and no apparent distress HEENT Head and Scalp: atraumatic Resp normal respiratory effort Auscultation: clear to auscultation bilaterally Cardio Rate: regular rate Rhythm: regular rhythm GI soft to palpation and non-tender Inspection: incision intact, healing well and drainage (bandage changed silver applied binder reapplied with puressure dressing, consult wound center for higher infection risk) Bimanual Exam - Vag & Uterus: uterus non-tender Uterus Palpation: uterus fundus firm (below Umbilicus) Assessment & Plan (1) Preeclampsia, severe: COMMENT: 60 mg procardia start , off magnesium sulfate now. continue to monitor (2) delivery delivered: COMMENT: MICHELLE RLTCS severe preeclampsia girl loralie 33 PLAN: Plan s/p LTCS PPD # 2 1. routine post care 2. breast feeding- support given 3. rh positive 4. rubella immune 5. severe preeclampsia s/p magnesium sulfate, on labetalol 200 BID. monitor serial labs. continuing to diurese. 6. consult wound center due to high risk incision due to continued edema with drainage 7. cxr due to shortness of breath when supine
--- NOTE | 2024-09-06 08:15 | RAD_ITS ---
STUDY: X-RAY CHEST REASON FOR EXAM: Female, 33 years old. Sob -- preeclampsia, edema TECHNIQUE: PA and lateral views of the chest. COMPARISON: None. FINDINGS: Left basilar atelectasis. Blunting of both costophrenic angles posteriorly into peripheral small bilateral pleural effusions. Normal size heart. Normal mediastinum and paul. Normal visualized pulmonary arteries. Normal visualized aortic arch and descending thoracic aorta. Normal visualized thoracic spine. Normal visualized ribs, clavicles, and shoulders. There is no demonstrated abnormality of the visualized soft tissue structures of the upper abdomen. RAD/Chest PA and Lateral IMPRESSION: Small bilateral pleural effusions with blunting of both cost phrenic angles. Left basilar atelectasis. Electronically Signed: Azam Kruger MD at 8:54 EST ,
[2024-09-06] MEDS: oxyCODONE 5 MG Tablet PO ×4 (08:56→20:48)
[2024-09-06] MEDS: Senna/Docusate Sodium 1 Tablet PO (09:59)
[2024-09-06] MEDS: SimETHICONE 80 MG Chewable Tablet PO ×3 (09:59→20:49)
[2024-09-06 10:00] VITALS: BP 145/88; PULSE 98; RESP 16; TEMP 36.9; O2SAT 98
[2024-09-06] MEDS: Furosemide 20 MG/2 ML VIAL 10 MG IV (10:30)
[2024-09-06] MEDS: 0.9% Saline Lock 10 ML Syringe IV (10:32)
[2024-09-06 10:50] LABS: Absolute Lymphocyte Count 1.63 X10^3/uL (0.83-4.51); Absolute Neutrophil Count 7.3 X10^3/uL (2.0-7.7); Basophil# 0.02 X10^3/uL; Basophil% 0.2 % (0-1); Eosinophil# 0.11 X10^3/uL; Eosinophils% 1.2 % (0-5); Hematocrit 33.6 % (37-47); Hemoglobin 11.2 g/dL (12.0-15.0); Lymphocyte # 1.63 X10^3/ul (0.83-4.51); Lymphocyte % 17.1 % (19-41); Mean Corp Hgb Conc 33.3 g/dL (32-36); Mean Corpuscular Hgb 30.2 pg (27.0-32.0); Mean Corpuscular Volume 90.6 fL (81-99); Mean Platelet Vol. 10.2 fl (6.2-12.0); Monocyte# 0.44 X10^3/uL; Monocyte% 4.6 % (0-10); NRBC Flagged by Analyzer 0 % (0-5); Neutrophil # 7.31 X10^3/uL (2.7-7.7); Neutrophil % 76.5 % (47-70); Platelet Count 176 K/mm3 (150-450); RBC Distribution Width CV 14.1 % (11.6-14.6); RBC Distribution Width SD 46.5 fl (35.1-43.9); Red Blood Count 3.71 M/mm3 (4.2-5.4); White Blood Count 9.6 K/mm3 (4.4-11.0)
[2024-09-06 11:28] LABS: ALB/GLOB Ratio 0.6 RATIO (0.9-2.4); AST(SGOT) 14 U/L (15-37); Alanine Aminotransfer ALT/SGPT 15 U/L (13-56); Albumin, Serum 1.9 g/dL (3.2-5.0); Alkaline Phosphatase 72 U/L (45-117); Anion Gap 6 (5-15); BUN 15 mg/dL (7-18); BUN/Creat Ratio 14.3 RATIO (10-20); Calcium,Total 7.1 mg/dL (8.5-10.1); Chloride 111 mmol/L (98-107); Creatinine, Serum 1.05 mg/dL (0.55-1.02); EST Glomerular Filtration Rate 63 mL/min (>60); Est Glom Filt Rate - Afr Amer 76 mL/min (>60); Estimated Creatinine Clearance 87.11 ml/min; Globulin 3.1 g/dL (2.2-4.2); Glucose 109 mg/dL (74-106); Sodium Level 140 mmol/L (136-145)
--- NOTE | 2024-09-06 11:59 | NURSING ---
patient moved to room 5 per wheelchair. Wound nurse to room to start wound vac. Pt tolerated well.
[2024-09-06 15:38] VITALS: BP 150/86; PULSE 86; RESP 16; TEMP 36.8; O2SAT 98
[2024-09-06] MEDS: fentaNYL 100 MCG/2 ML Ampul 50 MCG IV (21:24)
--- NOTE | 2024-09-06 21:36 | PCM.PN.BLA ---
Progress Note seen for incisional pain tonight, reviewed, suspect either GI in origin, or need incresaed pain control. incision inspected and intact with wound vac in place, no fascial defect noted no fluctuant masses. continu epain management and observation at this time.
[2024-09-06 21:40] VITALS: BP 143/89; PULSE 81; RESP 16; TEMP 36.5; O2SAT 98
[2024-09-07] MEDS: oxyCODONE 5 MG Tablet PO ×3 (00:46→10:28)
[2024-09-07] MEDS: Naproxen 500 MG Tablet PO ×3 (02:18→19:43)
[2024-09-07 02:40] VITALS: BP 129/86; PULSE 86; RESP 16; TEMP 36.7; O2SAT 97
[2024-09-07] MEDS: Acetaminophen 500 MG Tablet 1000 MG PO ×3 (06:18→19:00)
[2024-09-07] MEDS: Labetalol 200 MG Tablet PO ×3 (06:18→21:55)
[2024-09-07] MEDS: Enoxaparin 40 MG/0.4 ML Syringe SC ×2 (06:19→19:00)
--- NOTE | 2024-09-07 07:54 | PN.OBGYN_ITS ---
Subjective Subjective Patient is laying in bed and states that she is finally starting to feel better after having a bout of pain last night on her left side. She states that she slept on an off during the night. Lochia is mild and pain is minimal. The wound vac nurse is in the room this am and states that they will replace the vac today and place a disposable vac. She also states that they fear that sometimes with a lot of fluid that the fluid can get trapped below the vac so today when they remove it they will try to express more fluid. Objective Data Objective Data Vital Signs: Vital Signs Temp Pulse Resp BP Pulse Ox O2 Del Method 98.1 F 86 16 129/86 H 97 Room Air 09/07/24 02:40 09/07/24 02:40 09/07/24 02:40 09/07/24 02:40 09/07/24 02:40 09/07/24 02:40 Oxygen Delivery Method Room Air Weight: 241 lb Body Mass Index (BMI) 44.0 Intake & Output: Intake and Output for Last 24 Hours 09/05/24 09/06/24 09/07/24 23:59 23:59 23:59 Intake Total 3676.67 / 3676.67 Output Total 2862 / 2862 3000 / 3000 Balance 814.67 / 814.67 -3000 / -3000 Lab / Micro Data 09/06/24 10:40 09/06/24 10:40 Labs: Laboratory Results - last 24 hr 09/06/24 10:40: WBC 9.6, RBC 3.71 L, Hgb 11.2 L, Hct 33.6 L, MCV 90.6, MCH 30.2, MCHC 33.3, RDW Std Deviation 46.5 H, RDW Coeff of Damaso 14.1, Plt Count 176, MPV 10.2, Immature Gran % (Auto) 0.400, Neut % (Auto) 76.5 H, Lymph % (Auto) 17.1 L, [place] % (Auto) 4.6, Eos % (Auto) 1.2, Baso % (Auto) 0.2, Absolute Neuts (auto) 7.3, Absolute Lymphs (auto) 1.63, Nucleated RBC % 0, Sodium 140, Potassium 4.0, Chloride 111 H, Carbon Dioxide 23.0, Anion Gap 6, BUN 15, Creatinine 1.05 H, Estim Creat Clear Calc 87.11, Est GFR (MDRD) Af Amer 76, Est GFR (MDRD) Non-Af 63, BUN/Creatinine Ratio 14.3, Glucose 109 H, Calcium 7.1 L, Total Bilirubin 0.30, AST 14 L, ALT 15, Alkaline Phosphatase 72, Total Protein 5.0 L, Albumin 1.9 L, Globulin 3.1, Albumin/Globulin Ratio 0.6 L Radiography Diagnostic Testing: Radiology Impression Chest X-Ray 09/06/24 08:15 IMPRESSION: Small bilateral pleural effusions with blunting of both cost phrenic angles. Left basilar atelectasis. Electronically Signed: Azam Kruger MD at 8:54 EST , ROS Constitutional Constitutional: Reports systems reviewed and no addt'l complaints, except as documented Cardiovascular Cardiovascular: Denies chest pain, dizziness, dyspnea or irregular heart rhythm Respiratory/Chest Respiratory/Chest: Denies cough, pain on inspiration or shortness of breath at rest Gastrointestinal Gastrointestinal: Denies abdominal pain, nausea or vomiting Genitourinary Genitourinary: Denies burning urination Musculoskeletal Musculoskeletal: Denies muscle cramps, muscle spasms or muscle weakness Neurologic Neurologic: Denies confusion, dizziness, headache(s) or lack of coordination Psychiatric Psychiatric: Denies anxiety, behavioral changes or depression Physical Exam HEENT normocephalic Resp normal respiratory effort and normal air movement GI soft to palpation, non-tender and non-distended Rectal Exam: other Other Details: Incision is clean, dry, and intact. wound vac in place no CVA tenderness Extremity normal to inspection General Extremity: edema bilateral (3+) lower extremity Assessment & Plan (1) Preeclampsia, severe: COMMENT: 60 mg procardia start , off magnesium sulfate now. continue to monitor (2) delivery delivered: COMMENT: RLTCS severe preeclampsia girl loralie 33 PLAN: Plan pt still has 3+ pitting edema- ordering more lasix today and encouraging oob ambulation. appreciate wound team patient not fit for dc yet today but hopefully by tomorrow will be in a better place with pain control and wound vac plan. if pain returns will order a CT or ultrasound to look for potential pockets of fluid
[2024-09-07 09:56] VITALS: BP 138/86; PULSE 92; RESP 16; O2SAT 94
[2024-09-07] MEDS: Furosemide 20 MG/2 ML VIAL 10 MG IV ×2 (10:28→19:00)
[2024-09-07] MEDS: Senna/Docusate Sodium 1 Tablet PO (10:29)
--- NOTE | 2024-09-07 12:19 | WOUNDNOTE ---
In to reassess the incision. removed the wound VAC. there was a small amount of drainage noted in the VAC canister. no oozing noted from the incision. no erythema noted. the incision is well approximated. still just a slight opening noted at the right lateral incision. pt wanting to shower. applied a Mepilex dressing for shower. will re-evaluate later today and possibly place a disposable wound VAC. pt will most likely be discharged home tomorrow. will monitor.
[2024-09-07 14:15] VITALS: BP 149/91; PULSE 77; RESP 16; TEMP 36.4; O2SAT 98
--- NOTE | 2024-09-07 16:29 | WOUNDNOTE ---
Pt had a Mepilex dressing in place all day. had ambulated in the halls. a tiny area of drainage noted on the dressing approx the size of a pea from the right lateral portion on the incision. applied a prevena wound VAC. the dressing was completely suctioned down but kept alarming leak. applied extra drape over the entire dressing and still alarmed leak. checked tubing and canister. continued to alarm. decided to remove the Prevena dressing and apply a Mepilex dressing. did apply 3 small steri strips. there is no erythema noted to the incision. appears well approximated. Pt will most likely be discharged home tomorrow and will follow up next week. pt aware to call for needs. MODE Gamble aware of plan. Pt and comfortable with plan as well.
[2024-09-07] MEDS: 0.9% Saline Lock 10 ML Syringe IV (19:00)
[2024-09-07 20:20] VITALS: BP 139/75; PULSE 87; RESP 16; TEMP 36.6; O2SAT 98
[2024-09-08] VITALS (8 sets, daily range): BP systolic 123–164; BP diastolic 80–90; PULSE 70–92; RESP 16–18; TEMP 36.6–36.8; O2SAT 97–99
[2024-09-08] MEDS: Acetaminophen 500 MG Tablet 1000 MG PO ×4 (01:13→18:46)
[2024-09-08] MEDS: Naproxen 500 MG Tablet PO ×2 (02:33→11:20)
[2024-09-08] MEDS: Labetalol 200 MG Tablet PO (05:53)
[2024-09-08] MEDS: SimETHICONE 80 MG Chewable Tablet PO (06:10)
[2024-09-08] MEDS: Enoxaparin 40 MG/0.4 ML Syringe SC ×2 (06:58→18:47)
--- NOTE | 2024-09-08 07:28 | ECHOD_ITS ---
Reason For Study: SOB Procedure This was a 2D Doppler, Color Flow transthoracic echocardiogram. Exam performed portable in patient room. Left Ventricle Normal size and thickness. The left ventricular ejection fraction is 65 %. Right Ventricle Normal right ventricle. Atria The left and right atria are normal. Mitral Valve Trivial mitral valve insufficiency. Tricuspid Valve Trivial tricuspid valve insufficiency. Unable to estimate RV systolic pressure due to insufficient tricuspid regurgitant envelope. Aortic Valve Trisinus/trileaflet aortic valve. Pulmonic Valve The pulmonic valve is not well visualized. Great Vessels Normal sized aortic root. Pericardium/Pleural Trivial pericardial effusion. MMode/2D Measurements & Calculations LVIDd: 5.0 cm IVSd: 1.1 cm Ao root diam: 2.9 cm LVIDs: 2.9 cm LVPWd: 1.1 cm FS: 43.1 % LAV(MOD-bp): 53.6 ml LVAd ap4: 24.6 cm2 SV(MOD-sp4): 45.8 ml LAV(MOD-bp) Indexed: 25.9 ml/m2 LVLd ap4: 7.6 cm SI(MOD-sp4): 22.1 ml/m2 LAV(MOD-sp2): 54.6 ml EDV(MOD-sp4): 69.0 ml LAV(MOD-sp4): 46.3 ml EDV(sp4-el): 67.6 ml LVAs ap4: 12.7 cm2 LVLs ap4: 6.4 cm ESV(MOD-sp4): 23.2 ml ESV(sp4-el): 21.4 ml EF(MOD-sp4): 66.3 % EF(sp4-el): 68.3 % SV(sp4-el): 46.1 ml LA A4 area: 17.1 cm2 LA dimension(2D): 3.7 cm RA A4 area: 12.4 cm2 Time Measurements MV dec time: 0.15 sec Doppler Measurements & Calculations MV E max steven: 102.0 cm/sec Lat Peak E' Steven: 18.9 cm/sec Med Peak E' Steven: 11.9 cm/sec MV A max steven: 68.0 cm/sec E/E' lat: 5.4 E/E' med: 8.6 MV E/A: 1.5 Ao V2 max: 168.4 cm/sec LV V1 max: 154.0 cm/sec MV dec slope: 761.9 cm/sec2 Ao max P.4 mmHg LV V1 max P.5 mmHg Ao V2 mean: 107.2 cm/sec LV V1 mean P.3 mmHg Ao mean P.3 mmHg LV V1 mean: 94.4 cm/sec Ao V2 VTI: 34.6 cm LV V1 VTI: 30.9 cm AV (velocity ratio): 0.89 PA V2 max: 104.3 cm/sec PA V2 mean: 72.0 cm/sec ECHO/Echo Complete Interpretation Summary The left ventricular ejection fraction is 65 %. Trivial pericardial effusion. Ordering Physician: Odalys Chavez Referring Physician: Tawny Martínez Performed By: Martha Palomo RCS
[2024-09-08] MEDS: Labetalol 100 MG Tablet PO (08:12)
[2024-09-08 08:34] LABS: Absolute Lymphocyte Count 1.01 X10^3/uL (0.83-4.51); Absolute Neutrophil Count 4.3 X10^3/uL (2.0-7.7); Eosinophil# 0.24 X10^3/uL; Hemoglobin 10.1 g/dL (12.0-15.0); Lymphocyte # 1.01 X10^3/ul (0.83-4.51); Mean Corp Hgb Conc 32.6 g/dL (32-36); Mean Platelet Vol. 9.7 fl (6.2-12.0); Monocyte# 0.36 X10^3/uL; Monocyte% 6.1 % (0-10); NRBC Flagged by Analyzer 0 % (0-5); Neutrophil # 4.31 X10^3/uL (2.7-7.7); Neutrophil % 72.6 % (47-70); Platelet Count 165 K/mm3 (150-450); RBC Distribution Width CV 14.3 % (11.6-14.6); Red Blood Count 3.37 M/mm3 (4.2-5.4); White Blood Count 5.9 K/mm3 (4.4-11.0)
--- NOTE | 2024-09-08 09:07 | PCM.PN.OB ---
Subjective Subjective ambulating well, diuresing, swelling still present but continuing to decrease, pain controlled, still feels fullness in lower abdomen but no areas abmormal to palpation. no vb cp sob n v Objective Data Objective Data Vital Signs: Vital Signs Temp Pulse Resp BP Pulse Ox O2 Del Method 97.9 F 92 16 145/81 H 99 Room Air 09/08/24 01:15 09/08/24 01:15 09/08/24 01:15 09/08/24 01:15 09/08/24 01:15 09/08/24 01:15 Oxygen Delivery Method Room Air Weight: 241 lb Body Mass Index (BMI) 44.0 Intake & Output: Intake and Output for Last 24 Hours 09/06/24 09/07/24 09/08/24 23:59 23:59 23:59 Output Total 3000 / 3000 Balance -3000 / -3000 Lab / Micro Data 09/08/24 08:10 09/06/24 10:40 Labs: Laboratory Results - last 24 hr 09/08/24 08:10: WBC 5.9, RBC 3.37 L, Hgb 10.1 L, Hct 31.0 L, MCV 92.0, MCH 30.0, MCHC 32.6, RDW Std Deviation 48.0 H, RDW Coeff of Damaso 14.3, Plt Count 165, MPV 9.7, Immature Gran % (Auto) 0.300, Neut % (Auto) 72.6 H, Lymph % (Auto) 17.0 L, [place] % (Auto) 6.1, Eos % (Auto) 4.0, Baso % (Auto) 0.0, Absolute Neuts (auto) 4.3, Absolute Lymphs (auto) 1.01, Nucleated RBC % 0 Radiography Diagnostic Testing: Radiology Impression Chest X-Ray 09/06/24 08:15 IMPRESSION: Small bilateral pleural effusions with blunting of both cost phrenic angles. Left basilar atelectasis. Electronically Signed: Azam Kruger MD at 8:54 EST , ROS Constitutional Constitutional: Reports systems reviewed and no addt'l complaints, except as documented Cardiovascular Cardiovascular: Denies chest pain, dizziness, dyspnea or irregular heart rhythm Respiratory/Chest Respiratory/Chest: Denies cough, pain on inspiration or shortness of breath at rest Gastrointestinal Gastrointestinal: Denies abdominal pain, nausea or vomiting Genitourinary Genitourinary: Denies burning urination Musculoskeletal Musculoskeletal: Denies muscle cramps, muscle spasms or muscle weakness Neurologic Neurologic: Denies confusion, dizziness, headache(s) or lack of coordination Psychiatric Psychiatric: Denies anxiety, behavioral changes or depression Physical Exam Const alert, oriented x3 and no apparent distress HEENT normocephalic Head and Scalp: atraumatic Resp normal respiratory effort Auscultation: clear to auscultation bilaterally Cardio Rate: regular rate Rhythm: regular rhythm GI soft to palpation and non-tender GI Narrative: incision intact no fluctuant areas, no fluid expressing bandage intact Bimanual Exam - Vag & Uterus: uterus non-tender Uterus Palpation: uterus fundus firm (below Umbilicus) Extremity normal to inspection General Extremity: edema bilateral (3+) lower extremity Assessment & Plan (1) Preeclampsia, severe: COMMENT: 60 mg procardia start , off magnesium sulfate now. continue to monitor (2) delivery delivered: COMMENT: RLTCS severe preeclampsia girl loralie 33 PLAN: Plan s/p LTCS PPD # 4 1. routine post care 2. breast feeding- support given 3. rh positive 4. rubella immune repeat labs, echo today.
[2024-09-08 09:08] LABS: ALB/GLOB Ratio 0.6 RATIO (0.9-2.4); AST(SGOT) 55 U/L (15-37); Alanine Aminotransfer ALT/SGPT 60 U/L (13-56); Alkaline Phosphatase 74 U/L (45-117); Anion Gap 3 (5-15); BUN 20 mg/dL (7-18); BUN/Creat Ratio 20.2 RATIO (10-20); Calcium,Total 7.8 mg/dL (8.5-10.1); Chloride 110 mmol/L (98-107); Creatinine, Serum 0.99 mg/dL (0.55-1.02); EST Glomerular Filtration Rate 68 mL/min (>60); Est Glom Filt Rate - Afr Amer 82 mL/min (>60); Estimated Creatinine Clearance 92.39 ml/min; Globulin 3.3 g/dL (2.2-4.2); Glucose 82 mg/dL (74-106); Potassium 4.7 mmol/L (3.5-5.1); Protein, Total 5.3 g/dL (6.4-8.2); Sodium Level 141 mmol/L (136-145)
[2024-09-08] MEDS: 0.9% Saline Lock 10 ML Syringe IV (11:16)
[2024-09-08] MEDS: Furosemide 20 MG/2 ML VIAL 10 MG IV (11:17)
[2024-09-08] MEDS: Senna/Docusate Sodium 1 Tablet PO (11:17)
[2024-09-08 12:05] LABS: Protein, Urine (Random) 44.8 mg/dL (<11.9); Protein:Creat Ratio 1167 mg/g CRE (0-200)
[2024-09-08] MEDS: Labetalol 200 MG Tablet 300 MG PO ×2 (14:16→22:14)
[2024-09-08 14:39] LABS: Basophil# 0.01 X10^3/uL; Basophil% 0.2 % (0-1); Eosinophil# 0.21 X10^3/uL; Eosinophils% 3.2 % (0-5); Hematocrit 30.7 % (37-47); Lymphocyte % 13.7 % (19-41); Mean Corp Hgb Conc 32.6 g/dL (32-36); Mean Corpuscular Volume 92.2 fL (81-99); Mean Platelet Vol. 9.7 fl (6.2-12.0); Monocyte# 0.41 X10^3/uL; Monocyte% 6.2 % (0-10); NRBC Flagged by Analyzer 0 % (0-5); Neutrophil # 5.03 X10^3/uL (2.7-7.7); Neutrophil % 76.2 % (47-70); Platelet Count 161 K/mm3 (150-450); RBC Distribution Width CV 14.3 % (11.6-14.6); Red Blood Count 3.33 M/mm3 (4.2-5.4); White Blood Count 6.6 K/mm3 (4.4-11.0)
--- NOTE | 2024-09-08 15:04 | NURSING ---
Has been up voiding qs per pt report. Output has been QS clear urine.
[2024-09-08 15:07] LABS: ALB/GLOB Ratio 0.6 RATIO (0.9-2.4); AST(SGOT) 53 U/L (15-37); Alanine Aminotransfer ALT/SGPT 65 U/L (13-56); Albumin, Serum 2.1 g/dL (3.2-5.0); Alkaline Phosphatase 67 U/L (45-117); Anion Gap 5 (5-15); BUN 19 mg/dL (7-18); BUN/Creat Ratio 18.3 RATIO (10-20); Calcium,Total 8.1 mg/dL (8.5-10.1); Chloride 110 mmol/L (98-107); Creatinine, Serum 1.04 mg/dL (0.55-1.02); EST Glomerular Filtration Rate 64 mL/min (>60); Est Glom Filt Rate - Afr Amer 77 mL/min (>60); Estimated Creatinine Clearance 87.95 ml/min; Globulin 3.5 g/dL (2.2-4.2); Glucose 92 mg/dL (74-106); Protein, Total 5.6 g/dL (6.4-8.2); Sodium Level 141 mmol/L (136-145)
[2024-09-08] MEDS: Furosemide 20 MG Tablet PO (18:46)
[2024-09-08] MEDS: oxyCODONE 5 MG Tablet PO (18:47)
[2024-09-08] MEDS: Hydrocortisone 2.5% Crm 1 APPLIC TOPICAL (22:26)
[2024-09-09] VITALS (19 sets, daily range): BP systolic 142–169; BP diastolic 80–98; PULSE 75–86; RESP 16; TEMP 36.5–37.1; O2SAT 98–100
[2024-09-09] MEDS: Acetaminophen 500 MG Tablet 1000 MG PO ×4 (01:03→22:12)
[2024-09-09] MEDS: hydrALAZINE 10 MG Tablet PO ×2 (02:44→08:43)
[2024-09-09] MEDS: oxyCODONE 5 MG Tablet PO ×3 (02:45→17:32)
[2024-09-09 02:54] LABS: Absolute Lymphocyte Count 1.34 X10^3/uL (0.83-4.51); Absolute Neutrophil Count 3.7 X10^3/uL (2.0-7.7); Basophil# 0.01 X10^3/uL; Basophil% 0.2 % (0-1); Eosinophil# 0.25 X10^3/uL; Eosinophils% 4.4 % (0-5); Hematocrit 30.3 % (37-47); Hemoglobin 9.7 g/dL (12.0-15.0); Lymphocyte # 1.34 X10^3/ul (0.83-4.51); Lymphocyte % 23.4 % (19-41); Mean Corpuscular Hgb 29.7 pg (27.0-32.0); Mean Corpuscular Volume 92.7 fL (81-99); Mean Platelet Vol. 10.3 fl (6.2-12.0); Monocyte# 0.35 X10^3/uL; Monocyte% 6.1 % (0-10); NRBC Flagged by Analyzer 0 % (0-5); Neutrophil # 3.74 X10^3/uL (2.7-7.7); Neutrophil % 65.4 % (47-70); POSITIVE COUNT YES; RBC Distribution Width CV 14.1 % (11.6-14.6); RBC Distribution Width SD 47.8 fl (35.1-43.9); Red Blood Count 3.27 M/mm3 (4.2-5.4); White Blood Count 5.7 K/mm3 (4.4-11.0)
[2024-09-09 03:00] LABS: Differential Indicated SCAN CRITERIA MET
[2024-09-09 03:09] LABS: ALB/GLOB Ratio 0.6 RATIO (0.9-2.4); AST(SGOT) 42 U/L (15-37); Alanine Aminotransfer ALT/SGPT 58 U/L (13-56); Albumin, Serum 1.8 g/dL (3.2-5.0); Alkaline Phosphatase 72 U/L (45-117); Anion Gap 7 (5-15); BUN 17 mg/dL (7-18); BUN/Creat Ratio 22.4 RATIO (10-20); Calcium,Total 7.4 mg/dL (8.5-10.1); Chloride 114 mmol/L (98-107); Creatinine, Serum 0.76 mg/dL (0.55-1.02); EST Glomerular Filtration Rate 92 mL/min (>60); Est Glom Filt Rate - Afr Amer 111 mL/min (>60); Estimated Creatinine Clearance 120.35 ml/min; Globulin 3.1 g/dL (2.2-4.2); Glucose 84 mg/dL (74-106); Potassium 4.1 mmol/L (3.5-5.1); Protein, Total 4.9 g/dL (6.4-8.2); Sodium Level 142 mmol/L (136-145)
[2024-09-09 03:36] LABS: Differential Comment SCANNED; Platelet Estimate ADEQUATE (ADEQ)
[2024-09-09] MEDS: Labetalol 200 MG Tablet 300 MG PO (06:07)
[2024-09-09] MEDS: Enoxaparin 40 MG/0.4 ML Syringe SC ×2 (06:58→18:45)
[2024-09-09] MEDS: Furosemide 20 MG Tablet PO ×2 (10:08→17:33)
[2024-09-09] MEDS: Senna/Docusate Sodium 1 Tablet PO ×2 (10:08→17:26)
[2024-09-09] MEDS: hydroCHLOROthiazide 25 MG Tablet PO (10:08)
[2024-09-09 11:33] LABS: Mucous, Urine 0 SEEN /hpf (<or=2+)
[2024-09-09 11:37] LABS: Color, Urine Yellow (Yellow); Glucose, Dipstick Normal (Normal); Ketone-Dipstick Negative (Negative); Leukocyte Esterase-Dipstick Negative /ul (Negative); Nitrite-Dipstick Negative (Negative); Occult Blood-Urine 25 /ul (Negative); Protein-Dipstick 100 mg/dl (Negative); Urine Bilirubin Dipstick Negative (Negative); Urine Clarity Clear (Clear); Urine Urobilinogen Normal (Normal); Urine pH 6.5 (5.0 - 8.0)
[2024-09-09 11:46] LABS: White Blood Cells 0-5 SEEN /hpf (0-5)
[2024-09-09 11:47] LABS: Bacteria 1+ /hpf (None Seen); Red Blood Cells-Urine 0-5 SEEN /hpf (0-5); Squamous Epithelial Cells - UA 0-5 SEEN /hpf (5-10)
[2024-09-09 11:48] LABS: Hyaline Cast 0-5 SEEN /lpf (0-5)
--- NOTE | 2024-09-09 12:54 | PCM.DC.SUM ---
Providers Date of Admission: 09/04/24 Consultations 09/06/24 07:47 Consult: Onc/Wound/laboratory technologist Routine Comment: Reason for Consult:: post Comments:: preeclampsia, severe edema 09/09/24 09:33 Consult: Cardiology Urgent Consulting Provider: Odalys Chavez Reason for Consult: unstable blood pressures, and fluid retention EMERGENT Consult: No MD Notified: Yes Date Notified: 09/09/24 Time Notified: 09:34 Method of Notification: Verbal Method of Consult:: In-Person Comments:: states she is calling Reason For Visit: LABOR AND DELIVERY Diagnosis Discharge Diagnosis (1) Preeclampsia, severe: Status: Acute Code(s): O14.10 - Severe pre-eclampsia, unspecified trimester (2) delivery delivered: Status: Acute Code(s): O82 - Encounter for delivery without indication Plan pt still has 3+ pitting edema- ordering more lasix today and encouraging oob ambulation. appreciate wound team patient not fit for dc yet today but hopefully by tomorrow will be in a better place with pain control and wound vac plan. if pain returns will order a CT or ultrasound to look for potential pockets of fluid Medications at Discharge Home Medications aspirin 81 mg chewable tablet 81 mg PO DAILY 04/15/24 docosahexaenoic acid 200 mg capsule ( DHA) mg PO 04/15/24 naproxen 500 mg tablet 500 mg PO BID PRN PRN Pain #30 tabs 09/04/24 oxycodone-acetaminophen 5 mg-325 mg tablet (Percocet) 1 tab PO Q4H PRN pain 7 days #20 tabs 09/04/24 oxycodone-acetaminophen 5 mg-325 mg tablet (Percocet) 1 tab PO Q8H PRN pain 7 days #20 tabs 09/04/24 enoxaparin 40 mg/0.4 mL subcutaneous syringe (Lovenox) 40 mg (0.4 mL) subcut DAILY #4 mL 09/09/24 hydralazine 10 mg tablet 10 mg PO TID 30 days #90 tabs 09/09/24 hydrochlorothiazide 25 mg tablet 25 mg PO DAILY #30 tabs 09/09/24 nitrofurantoin monohydrate/macrocrystals 100 mg capsule (Macrobid) 100 mg PO BID #14 caps 09/09/24 Hospital Course Operations None and section Summary of Care Provided Minutes Spent on Discharge: 30 Hospital Course: The patient was admitted to L&D on 09/04/24 for a section for severe pre-eclampsia. Pressures were managed with hydralazine and procardia. On post op day #1 she continue to experience extreme swelling and some oozing of fluid from her incision. On post op day #2 she was ambulating better and pain was tolerable. On post op day #3 pain became worse again. A wound consult was placed due to continued drainage from her incision and a wound vac was applied over night. On post op ay #4 the wound vac was removed and an echocardiogram was performed due to some shortness of breath. This was found to be normal. On post op Day #5 she experienced some further elevations in blood pressures. Cardiology was consulted and they recommended starting HCTZ and to increase labetalol to 400 tid. She was also started on macrobid for a possible UTI. Culture was pending upon her discharge to home. Her pressures by mid afternoon on 09/09/24 normalized to 140's/80's. Physical Exam HEENT normocephalic Resp normal respiratory effort and normal air movement GI soft to palpation, non-tender and non-distended Rectal Exam: other Other Details: Incision is clean, dry, and intact no CVA tenderness Extremity normal to inspection General Extremity: edema bilateral (trace ) Weight / BMI Weight Weight: 232 lb 4 oz Body Mass Index (BMI) 44.0 ABG / Lab / Microbiology Data 09/09/24 02:40 09/09/24 02:40 Laboratory: Laboratory Results - last 24 hr 09/08/24 14:20: WBC 6.6, RBC 3.33 L, Hgb 10.0 L, Hct 30.7 L, MCV 92.2, MCH 30.0, MCHC 32.6, RDW Std Deviation 48.0 H, RDW Coeff of Damaso 14.3, Plt Count 161, MPV 9.7, Immature Gran % (Auto) 0.500, Neut % (Auto) 76.2 H, Lymph % (Auto) 13.7 L, [place] % (Auto) 6.2, Eos % (Auto) 3.2, Baso % (Auto) 0.2, Absolute Neuts (auto) 5.0, Absolute Lymphs (auto) 0.90, Nucleated RBC % 0, Sodium 141, Potassium 5.0, Chloride 110 H, Carbon Dioxide 27.0, Anion Gap 5, BUN 19 H, Creatinine 1.04 H, Estim Creat Clear Calc 87.95, Est GFR (MDRD) Af Amer 77, Est GFR (MDRD) Non-Af 64, BUN/Creatinine Ratio 18.3, Glucose 92, Calcium 8.1 L, Total Bilirubin 0.40, AST 53 H, ALT 65 H, Alkaline Phosphatase 67, Total Protein 5.6 L, Albumin 2.1 L, Globulin 3.5, Albumin/Globulin Ratio 0.6 L 09/09/24 02:40: WBC 5.7, RBC 3.27 L, Hgb 9.7 L, Hct 30.3 L, MCV 92.7, MCH 29.7, MCHC 32.0, RDW Std Deviation 47.8 H, RDW Coeff of Damaso 14.1, Plt Count TNP, MPV 10.3, Immature Gran % (Auto) 0.500, Neut % (Auto) 65.4, Lymph % (Auto) 23.4, [place] % (Auto) 6.1, Eos % (Auto) 4.4, Baso % (Auto) 0.2, Absolute Neuts (auto) 3.7, Absolute Lymphs (auto) 1.34, Nucleated RBC % 0, Differential Comment SCANNED, Platelet Estimate ADEQUATE, Sodium 142, Potassium 4.1, Chloride 114 H, Carbon Dioxide 21.0, Anion Gap 7, BUN 17, Creatinine 0.76, Estim Creat Clear Calc 120.35, Est GFR (MDRD) Af Amer 111, Est GFR (MDRD) Non-Af 92, BUN/Creatinine Ratio 22.4 H, Glucose 84, Calcium 7.4 L, Total Bilirubin 0.30, AST 42 H, ALT 58 H, Alkaline Phosphatase 72, Total Protein 4.9 L, Albumin 1.8 L, Globulin 3.1, Albumin/Globulin Ratio 0.6 L 09/09/24 11:00: Urine Color Yellow, Urine Clarity Clear, Urine pH 6.5, Ur Specific [place] 1.010, Urine Protein 100 H, Urine Glucose (UA) Normal, Urine Ketones Negative, Urine Occult Blood 25 H, Urine Nitrite Negative, Urine Bilirubin Negative, Urine Urobilinogen Normal, Ur Leukocyte Esterase Negative, Urine RBC 0-5 SEEN, Urine WBC 0-5 SEEN, Ur Squamous Epith Cells 0-5 SEEN, Urine Bacteria 1+, Hyaline Casts 0-5 SEEN, Urine Mucus 0 SEEN Radiography Diagnostic Testing: Radiology Impression Echocardiogram 09/08/24 07:28 Interpretation Summary The left ventricular ejection fraction is 65 %. Trivial pericardial effusion. Ordering Physician: Odalys Chavez Referring Physician: Tawny Martínez Performed By: Martha Palomo RCS D/C Instructions Discharge Diet: No restrictions May shower in (days): 0 May resume sexual activity in: 4-6 weeks Weight Bearing Status: Full weight bearing Call your doctor if your incision/area has: Continuous Slow Oozing, Sudden Increased Bleeding, Increased Pain/ Swelling, Increased Redness and Foul Smelling Discharge Call your doctor if you observe: Fever of 101 or Higher and Using more than 1 pad per hour (for 2 hours) Suture Line Care: Avoid Pulling/Pushing and Avoid Pinching/Bending Cleanse incision/area with: Soap & Water and Keep Dressing Clean & Dry DC O2, CPAP, BIPAP Needs Home O2 Discharge instructions: No Please Follow Up With: Felisa Love MD When: Call [phone] to make an appointment for an incision check in 1-2 weeks. Meaningful Use Info Meaningful Use Meaningful Use Diagnoses (Choose all that apply): None applicable Ischemic Stroke Statin Dosing Therapy Reference: STATIN DOSE THERAPY REFERENCE: * Patients > 75 years receive moderate or high dose statin therapy. * Patients 75 years or YOUNGER should receive HIGH intensity statin dose unless contraindicated. You will be required to document reason for non-treatment if statin daily dose does not meet guidelines. HIGH DOSE STATIN THERAPY DAILY Atorvastatin > than or = to 40 mg Rosuvastatin > than or = to 20 mg Amlodipine + Atorvastatin > than or = to 2.5/40 mg Ezetimibe + Simvastatin 10/80 mg Simvastatin 80mg Discharge Plan Admission Admit Date/Time: 09/04/24 13:20 Primary Reason for Your Visit: severe pre-eclampsia Attending Provider: Tawny Martínez Consulting Providers: Odalys Chavez Discharge Orders/Prescriptions Prescriptions: New oxycodone-acetaminophen [Percocet] 5-325 mg tablet 1 tab PO Q4H PRN (Reason: pain) 7 Days Qty: 20 0RF naproxen 500 mg tablet 500 mg PO BID PRN PRN (Reason: Pain) Qty: 30 1RF oxycodone-acetaminophen [Percocet] 5-325 mg tablet 1 tab PO Q8H PRN (Reason: pain) 7 Days Qty: 20 0RF enoxaparin [Lovenox] 40 mg/0.4 mL syringe 40 mg subcut DAILY Qty: 4 1RF Rx Instructions: take for 6 weeks post hydralazine 10 mg tablet 10 mg PO TID 30 Days Qty: 90 6RF hydrochlorothiazide 25 mg tablet 25 mg PO DAILY Qty: 30 6RF nitrofurantoin monohyd/m-cryst [Macrobid] 100 mg capsule 100 mg PO BID Qty: 14 0RF Rx Instructions: must administer with a meal/food Continued DHA 200 mg capsule PO aspirin 81 mg tablet,chewable 81 mg PO DAILY Discontinued naltrexone 1.5 mg capsule PO Patient Comments: Per [facility] - to take through whole Disposition Disposition (needs filled in before D/C Order can be placed): Home, Self Care
--- NOTE | 2024-09-09 13:16 | PCM.PN.BLA ---
Progress Note patient was getting her discharge instructions and nurse rechecked bp. it is back up to 160's/90's and she continues to have blurry vision. asking cardiology to come see her . cancel Discharge.
[2024-09-09] MEDS: Labetalol 200 MG Tablet 400 MG PO ×2 (14:07→21:09)
--- NOTE | 2024-09-09 14:22 | CT_ITS ---
STUDY: CTA CHEST REASON FOR EXAM: Female, 33 years old. Uncontrolled blood pressures -- blurry vision for days. Recent section. RADIATION DOSAGE (If Supplied By Facility): CTDIvol = ( 11.86 ) mGy, DLP = ( 467.24 ) mGycm TECHNIQUE: The examination was performed with the intravenous administration of IV 100mL Isovue-370. Post-processing of the angiographic images was performed, with multiplanar reformation and 3D reconstruction. Individualized dose optimization techniques were used for this CT. COMPARISON: None. FINDINGS: Normal enhancement of the main pulmonary artery and right and left pulmonary arteries. Normal enhancement of the bilateral peripheral pulmonary arteries. There is no demonstrated pulmonary embolism. Normal thoracic aorta and visualized great vessels. There is no demonstrated aortic dissection. Normal heart and pericardium. Normal mediastinum. Normal hilar regions. Normal visualized trachea and bronchi. The lungs are well expanded. Small bilateral pleural effusions with bibasilar atelectasis slightly more prominent on the right side. Normal chest wall structures. Normal osseous structures. Normal visualized upper abdomen. CT/CTA Chest W/WO Contrast IMPRESSION: Small bilateral pleural effusions with bibasilar atelectasis slightly more prominent at the right lung base. Electronically Signed: Azam Kruger MD at 14:53 EST ,
--- NOTE | 2024-09-09 14:57 | CASEMGMT ---
Social Work Assessment Labor and Delivery Unit Patient Address: [address] [place] [address]. [place] [address] Phone number: [phone] Date of Referral: 09/07/24 Time of Referral:? [id number] Referred By: Dr. Love Date of Intervention: ??09/09/24 Time of Intervention:? 0 Reason for Referral:? hx anxiety, homegoing needs Sw completed chart review and acknowledges social work consult. Sw presented to bedside and met with mother of baby (MOB- Treasure) and father of baby (FOB- Oliver). Sw explained sw role and completed psychosocial assessment. History obtained from: medical records, MOB? and FOB. Household composition: MOB, FOModesto, their son Dale (5) and baby Patient's parent/guardian status:? ?Parents have been together for 14 years, meeting through zoroastrianism. Second baby for both parents together. NO concerns regarding domestic violence or intimate partner violence. Medical History: ?VINCE is 33 year old female who is 2, para 1- now 2 following labor and delivery of . VINCE received routine care during with [place]. VINCE presented to hospital and delivered baby via repeat on 09/04/24 at 35 weeks gestation. Baby girl, named Irlanda Louis was born weighing 5lb 6oz with apgars of 8 and 9 at one and five minutes of life, respectfully. VINCE states that she is breast feeding and baby will be followed by Dr. Martinez for pediatrics. Educational Status:? Both parents graduated from high school and VINCE has her doctorate in nursing. Financial Status: Both parents are gainfully employed outside of the home. 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 MARLENA works as a project architect for a [employer]. Supplies: All supplies obtained. Childcare/Caregiver(s):?MOB will be the primary caregiver to baby along with FOB and help from maternal grandma when both parents are working. Transportation:??No barriers, both parents have their drivers license and reliable means of transporation. Programs/Agencies Involved: None??? Children Services/Legal Issues:?No history of children services involvement. No issues or concerns warranting referral to be made at this time. ?? Behavioral Health Issues: ??Mental Health History:??Parents deny mental health history, although MOB chart indicates history of anxiety. While talking in more depth it does appear as though VINCE did experience some depression and/ or anxiety after her son was born. ? Substance Use History:?Parents deny substance use prior to and during . ? Family History: Parents deny family history of substance use or significant mental health diagnoses. ? Drug Screens: No drug screens observed during chart review. Family/Social Stressors:? Paretns state that their only stressors at this time are due to still being admitted to hospital. Parents are hopeful that they will be able to be discharged today. Support Systems: MOB identifies that FOModesto is her biggest support person and her mom. Depression/Shaken Baby/Safe Sleeping: Sw educated parents on signs and symptoms of baby blues and mood and anxiety disorders to be mindful of during this period. VINCE recognizes that she may have struggled with her first baby. MARLENA states that if she were to struggle during this period he would be able to recognize that and would know how to help and support her. Sw educated parents on shaken baby prevention and ABCs of safe sleep. Parents express understanding. ASSESSMENT:? MOB and baby admitted following labor and delivery of . MOB states that she is ready to go home after being admitted since 09/04. Baby was born early at 35 weeks gestation but is doing well medically. Parents have natural supports in place and necessary baby items. Parents appear to have strong and supportive relationship. They were open and talkative with sw, making good eye contact and offering appreciation for support and education provided. PLAN:?? No other services requested or indicated. MOB and baby to be discharged when medically ready. Parents were provided literature regarding: signs and symptoms of baby blues and mood and anxiety disorders, Help Me Grow, shaken baby prevention, ABCs of safe sleep and a list of county resources that are available for them should any needs present themselves. Linda Torres, ENVIRONMENTAL HEALTH SPECIALIST, BOOKBINDER CHIEF
[2024-09-09] MEDS: hydrALAZINE 50 MG Tablet PO ×2 (15:32→21:09)
--- NOTE | 2024-09-09 17:47 | PCM.PN.OB ---
Subjective Subjective patient is now in PCU per cardiology request and on telemetry. Her pressures are around 150s'/90's. She states that she wants to be transferred to another tier 1 facility so that more of her medical care can be covered by her insurance. I have called [facility] to ask if anything different would be done and they explained that since she is losing weight, diuresing, imaging looks overall normal, and we have consulted cardiology, that they would not be doing anything more. They will not accept a transfer for this. This was explained to the patient. She states that she is thinking about leaving AMA. vision still slightly blurry and she states that since moving more, her incision is draining more. She admits to a dull headache. Objective Data Objective Data Vital Signs: Vital Signs Temp Pulse Resp BP Pulse Ox O2 Del Method 98.7 F 78 16 155/89 H 100 Room Air 09/09/24 16:55 09/09/24 16:55 09/09/24 16:55 09/09/24 16:55 09/09/24 16:55 09/09/24 16:55 Oxygen Delivery Method Room Air Weight: 232 lb 4 oz Body Mass Index (BMI) 44.0 Intake & Output: Intake and Output for Last 24 Hours 09/07/24 09/08/24 09/09/24 23:59 23:59 23:59 Intake Total 100 / 100 Output Total 250 / 250 200 / 200 Balance -250 / -250 -100 / -100 Lab / Micro Data 09/09/24 02:40 09/09/24 02:40 Labs: Laboratory Results - last 24 hr 09/09/24 02:40: WBC 5.7, RBC 3.27 L, Hgb 9.7 L, Hct 30.3 L, MCV 92.7, MCH 29.7, MCHC 32.0, RDW Std Deviation 47.8 H, RDW Coeff of Damaso 14.1, Plt Count TNP, MPV 10.3, Immature Gran % (Auto) 0.500, Neut % (Auto) 65.4, Lymph % (Auto) 23.4, [place] % (Auto) 6.1, Eos % (Auto) 4.4, Baso % (Auto) 0.2, Absolute Neuts (auto) 3.7, Absolute Lymphs (auto) 1.34, Nucleated RBC % 0, Differential Comment SCANNED, Platelet Estimate ADEQUATE, Sodium 142, Potassium 4.1, Chloride 114 H, Carbon Dioxide 21.0, Anion Gap 7, BUN 17, Creatinine 0.76, Estim Creat Clear Calc 120.35, Est GFR (MDRD) Af Amer 111, Est GFR (MDRD) Non-Af 92, BUN/Creatinine Ratio 22.4 H, Glucose 84, Calcium 7.4 L, Total Bilirubin 0.30, AST 42 H, ALT 58 H, Alkaline Phosphatase 72, Total Protein 4.9 L, Albumin 1.8 L, Globulin 3.1, Albumin/Globulin Ratio 0.6 L 09/09/24 11:00: Urine Color Yellow, Urine Clarity Clear, Urine pH 6.5, Ur Specific [place] 1.010, Urine Protein 100 H, Urine Glucose (UA) Normal, Urine Ketones Negative, Urine Occult Blood 25 H, Urine Nitrite Negative, Urine Bilirubin Negative, Urine Urobilinogen Normal, Ur Leukocyte Esterase Negative, Urine RBC 0-5 SEEN, Urine WBC 0-5 SEEN, Ur Squamous Epith Cells 0-5 SEEN, Urine Bacteria 1+, Hyaline Casts 0-5 SEEN, Urine Mucus 0 SEEN Radiography Diagnostic Testing: Radiology Impression Chest CTA 09/09/24 14:22 IMPRESSION: Small bilateral pleural effusions with bibasilar atelectasis slightly more prominent at the right lung base. Electronically Signed: Azam Kruger MD at 14:53 EST Reading Location ID and State: [address] [place] [address] , Service support , ROS Constitutional Constitutional: Reports systems reviewed and no addt'l complaints, except as documented Cardiovascular Cardiovascular: Denies chest pain, dizziness, dyspnea or irregular heart rhythm Respiratory/Chest Respiratory/Chest: Denies cough, pain on inspiration or shortness of breath at rest Gastrointestinal Gastrointestinal: Denies abdominal pain, nausea or vomiting Genitourinary Genitourinary: Denies burning urination Musculoskeletal Musculoskeletal: Denies muscle cramps, muscle spasms or muscle weakness Neurologic Neurologic: Denies confusion, dizziness or lack of coordination Psychiatric Psychiatric: Denies behavioral changes or depression Physical Exam HEENT normocephalic Resp normal respiratory effort and normal air movement GI soft to palpation, non-tender and non-distended GI Narrative: Dressing slightly wet with clear fluid. This was removed and the surrounding area was palpated. No further fluid escaped the small opening in the incision. new dressing applied. no CVA tenderness Extremity Extremity Narrative: bilateral 2+ pitting edema. no calf tenderness. Assessment & Plan (1) Preeclampsia, severe: COMMENT: increase labetalol to 300 TID (2) delivery delivered: COMMENT: RLTCS severe preeclampsia girl loralie 33 PLAN: Plan echo normal cta normal with exception of atelectasis and trace bilateral pleural effusions on telemetry now continue labetalol 400 tid, HCTZ 25 daily, Hydralazine 50 mg tid (per cardiology)- awaiting formal consult note. patient appears to be headed in the right direction but appreciate any assistance from cardiology on bp control If decides to leave, will give AMA papers and all the meds listed above vistaril for anxiety now.
[2024-09-09 18:18] LABS: Hematocrit 32.1 % (37-47); Hemoglobin 10.4 g/dL (12.0-15.0); Mean Corp Hgb Conc 32.4 g/dL (32-36); Mean Corpuscular Hgb 29.6 pg (27.0-32.0); Mean Corpuscular Volume 91.5 fL (81-99); Mean Platelet Vol. 9.4 fl (6.2-12.0); Platelet Count 179 K/mm3 (150-450); RBC Distribution Width CV 14.1 % (11.6-14.6); RBC Distribution Width SD 47.1 fl (35.1-43.9); Red Blood Count 3.51 M/mm3 (4.2-5.4); White Blood Count 6.7 K/mm3 (4.4-11.0)
[2024-09-09 18:35] LABS: ALB/GLOB Ratio 0.6 RATIO (0.9-2.4); AST(SGOT) 35 U/L (15-37); Alanine Aminotransfer ALT/SGPT 59 U/L (13-56); Albumin, Serum 2.3 g/dL (3.2-5.0); Alkaline Phosphatase 86 U/L (45-117); Anion Gap 5 (5-15); BUN 15 mg/dL (7-18); BUN/Creat Ratio 16.8 RATIO (10-20); Calcium,Total 8.9 mg/dL (8.5-10.1); Chloride 110 mmol/L (98-107); EST Glomerular Filtration Rate 76 mL/min (>60); Est Glom Filt Rate - Afr Amer 92 mL/min (>60); Estimated Creatinine Clearance 99.44 ml/min; Globulin 3.8 g/dL (2.2-4.2); Glucose 87 mg/dL (74-106); Potassium 4.7 mmol/L (3.5-5.1); Protein, Total 6.1 g/dL (6.4-8.2); Sodium Level 139 mmol/L (136-145)
[2024-09-09] MEDS: hydrOXYzine PAM 25 MG Capsule PO (18:45)
[2024-09-09] MEDS: NIFEdipine 60 MG Tablet PO (20:51)
[2024-09-09] MEDS: Nitrofurantoin Macrocrystals 100 MG Capsule PO (22:12)
[2024-09-10] VITALS (13 sets, daily range): BP systolic 138–160; BP diastolic 72–89; PULSE 71–110; RESP 16–18; TEMP 36.6–36.9; O2SAT 96–98
[2024-09-10] MEDS: oxyCODONE 5 MG Tablet PO ×2 (02:38→15:52)
[2024-09-10] MEDS: Acetaminophen 500 MG Tablet 1000 MG PO ×4 (05:56→23:05)
[2024-09-10] MEDS: Enoxaparin 40 MG/0.4 ML Syringe SC ×2 (05:57→18:33)
[2024-09-10] MEDS: Labetalol 200 MG Tablet 400 MG PO ×3 (05:57→20:55)
[2024-09-10] MEDS: hydrALAZINE 50 MG Tablet PO ×3 (05:57→20:55)
--- NOTE | 2024-09-10 09:51 | PCM.PN.OB ---
Subjective Subjective patient is tearful today stating that she wants to be transferred to [place] for second opinion. It was again explained that they will not accept the transfer as we are doing what they would be doing there. We discussed that she is allowed to leave against medical advice, but that she is finally starting to have normal pressures. Her dressing was changed again yesterday and today it is half saturated again. She is sitting up in bed pumping and complains of a headache. Objective Data Objective Data Vital Signs: Vital Signs Temp Pulse Resp BP Pulse Ox O2 Del Method 98 F 103 H 16 139/72 H 97 Room Air 09/10/24 08:25 09/10/24 08:25 09/10/24 08:25 09/10/24 08:25 09/10/24 08:25 09/10/24 08:25 Oxygen Delivery Method Room Air Weight: 232 lb 4 oz Body Mass Index (BMI) 44.0 Intake & Output: Intake and Output for Last 24 Hours 09/08/24 09/09/24 09/10/24 23:59 23:59 23:59 Intake Total 1100 / 1100 450 / 450 Output Total 250 / 250 200 / 200 Balance -250 / -250 900 / 900 450 / 450 Lab / Micro Data 09/09/24 18:04 09/09/24 18:04 Labs: Laboratory Results - last 24 hr 09/09/24 11:00: Urine Color Yellow, Urine Clarity Clear, Urine pH 6.5, Ur Specific [place] 1.010, Urine Protein 100 H, Urine Glucose (UA) Normal, Urine Ketones Negative, Urine Occult Blood 25 H, Urine Nitrite Negative, Urine Bilirubin Negative, Urine Urobilinogen Normal, Ur Leukocyte Esterase Negative, Urine RBC 0-5 SEEN, Urine WBC 0-5 SEEN, Ur Squamous Epith Cells 0-5 SEEN, Urine Bacteria 1+, Hyaline Casts 0-5 SEEN, Urine Mucus 0 SEEN 09/09/24 18:04: WBC 6.7, RBC 3.51 L, Hgb 10.4 L, Hct 32.1 L, MCV 91.5, MCH 29.6, MCHC 32.4, RDW Std Deviation 47.1 H, RDW Coeff of Damaso 14.1, Plt Count 179, MPV 9.4, Sodium 139, Potassium 4.7, Chloride 110 H, Carbon Dioxide 25.0, Anion Gap 5, BUN 15, Creatinine 0.90, Estim Creat Clear Calc 99.44, Est GFR (MDRD) Af Amer 92, Est GFR (MDRD) Non-Af 76, BUN/Creatinine Ratio 16.8, Glucose 87, Calcium 8.9, Total Bilirubin 0.40, AST 35, ALT 59 H, Alkaline Phosphatase 86, Total Protein 6.1 L, Albumin 2.3 L, Globulin 3.8, Albumin/Globulin Ratio 0.6 L Micro: Microbiology 09/09/24 11:00 Urine, Clean Catch Urine Culture - Preliminary Mixed Gram Positive Organisms Radiography Diagnostic Testing: Radiology Impression Chest CTA 09/09/24 14:22 IMPRESSION: Small bilateral pleural effusions with bibasilar atelectasis slightly more prominent at the right lung base. Electronically Signed: Azam Kruger MD at 14:53 EST Reading Location ID and State: [facility] / [place] , Service support , ROS Constitutional Constitutional: Denies chills, fatigue, fever(s), poor appetite or weakness Eyes Eyes: Denies seeing flashes or spots in vision ENT HEENT: Denies dizziness, loss taste/smell or sore throat Cardiovascular Cardiovascular: Denies chest pain, dizziness, dyspnea, irregular heart rhythm, palpitations or rapid heart rate Respiratory/Chest Respiratory/Chest: Denies chest tightness, cough, dyspnea or breast pain Gastrointestinal Gastrointestinal: Denies abdominal pain, constipation or vomiting Genitourinary Genitourinary: Denies dysuria or flank pain Musculoskeletal Musculoskeletal: Denies difficulty walking, joint pain, limited range of motion or numbness Neurologic Neurologic: Denies abnormal movements, abnormal speech, dizziness, numbness, seizure-like activity or syncope Psychiatric Psychiatric: Denies anxiety, behavioral changes, change in appetite, confusion, depression or suicidal thoughts Physical Exam Const alert, oriented x3 and no apparent distress General Appearance: cooperative and comfortable Eyes PERRL Neck full ROM Chest inspection of chest normal and inspection of breasts normal Chest: abnormal inspection of the chest Resp normal respiratory effort Effort and Inspection: able to speak in complete sentences, symmetric chest movement and abnormal respiratory pattern Cardio Cardio Narrative: heart rate 103 Rate: tachycardic GI normal to inspection, nondistended, normoactive bowel sounds GI Narrative: uterus is firm below umbilicus. incision is clean but still leaking from the right side. dressing changed. Palpation: soft Back/Spine no CVA tenderness and thoraco-lumbar ROM normal Extremity normal to inspection, no clubbing, cyanosis or edema, no calf tenderness and no pedal edema Extremity Narrative: edema is much improved today. 1+ bilateral pitting. Psych mental status grossly normal, thought process normal, cooperative, affect normal, speech normal, activity/motor behavior normal, denies homicidal ideation and denies suicidal ideation Assessment & Plan (1) hypertension: (2) Preeclampsia, severe: COMMENT: increase labetalol to 300 TID (3) delivery delivered: COMMENT: RLTCS severe preeclampsia girl loralie 33 PLAN: Plan pressures are finally starting to normalize on procardia, labetalol, HCTZ, and hydralazine. Cardiology to help with dc planning and medications. greatly appreciate their help. thyroid studies ordered to rule out thyroid storm.
--- NOTE | 2024-09-10 10:12 | PCM.CONS.C ---
Assessment & Plan Assessment/Plan (1) hypertension: PLAN: Patient was noted to have severe preeclampsia during her . Status post . Patient is about 1 week out from her /delivery. It is hoped that her blood pressure will start getting better. Meanwhile continue labetalol, hydralazine and nifedipine ER. Discontinue hydrochlorothiazide. Change furosemide to 40 mg once daily. Monitor electrolytes. After discharge home, recommend monitoring blood pressure daily and titrating medications downward as her blood pressure improves. (2) Preeclampsia, severe: PLAN: Status post . (3) Tachycardia: PLAN: Status post recent delivery. Will check ECG. (4) delivery delivered: PLAN: As per OB. HPI Consult Data Date of Consult: 09/10/24 HPI Narrative Reason for Consultation: Resistant hypertension HPI Narrative: 33-year-old female with no significant past medical history. She was noted to have severe preeclampsia with hypertension and edema. section done on 09/04/2024. , it has been difficult to control her blood pressure. We have been asked for evaluation and help with management. No previous history of hypertension. No family history of hypertension. Denies any chest pains. No palpitations. Some orthopnea before her . Improving. Peripheral edema also improving. Denies any severe headaches. Echocardiogram done recently showed normal LV systolic function. Chest CT scan yesterday showed no aortic pathology. No pulmonary embolism. [facility] Medical History (Updated 09/10/24 @ 10:[address] Coreen Denis MD) Pre-eclampsia Endometriosis Dermoid cyst Peritoneal bleeding Home Medications ?Medication ?Instructions ?Recorded ?Last Taken ?Type aspirin 81 mg chewable tablet 81 mg PO DAILY 04/15/24 Unknown History docosahexaenoic acid 200 mg mg PO 04/15/24 Unknown History capsule ( DHA) naproxen 500 mg tablet 500 mg PO BID PRN PRN Pain #30 tabs 09/04/24 Unknown Rx oxycodone-acetaminophen 5 mg-325 1 tab PO Q4H PRN pain 7 days #20 09/04/24 Unknown Rx mg tablet (Percocet) tabs oxycodone-acetaminophen 5 mg-325 1 tab PO Q8H PRN pain 7 days #20 09/04/24 Unknown Rx mg tablet (Percocet) tabs enoxaparin 40 mg/0.4 mL 40 mg (0.4 mL) subcut DAILY #4 mL 09/09/24 Unknown Rx subcutaneous syringe (Lovenox) hydralazine 10 mg tablet 10 mg PO TID 30 days #90 tabs 09/09/24 Unknown Rx hydrochlorothiazide 25 mg tablet 25 mg PO DAILY #30 tabs 09/09/24 Unknown Rx nitrofurantoin 100 mg PO BID #14 caps 09/09/24 Unknown Rx monohydrate/macrocrystals 100 mg capsule (Macrobid) Allergy/AdvReac Type Severity Reaction Status Date / Time chlorhexidine (From Allergy Intermediate Rash Verified 08/23/24 15:18 ChloraPrep Clear) Family History Father Testicle cancer Mother Hypothyroid Grandmother Diabetes Type 2 Grandmother Scoliosis Surgical History H/O cervical polypectomy H/O laparoscopy S/P ACL repair H/O section Social History adopted: No household members: spouse and children number of children: 1 current occupational status: employed 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 current occupational exposures/hazards: No pets and animals: Yes ( taking care of litter box) pets and animals: cat(s) history of recent travel: No sexually active: Yes Smoking Status: Never smoker alcohol intake: current alcohol intake frequency: holidays/special occasions only details: none while substance use type: does not use well-balanced diet: daily or most days caffeine: Yes Type: coffee eating out: rarely or never during the past year weight has: increased > 10 lbs what type of physical activity do you participate in: yoga frequency: 3-4 times per week duration: 45-60 minutes/day jack/samaritan: Episcopalian seatbelt use: always do you feel safe at home: Yes additional social history: : [employer] - [employer] Physical Exam Narrative Appears comfortable. Lying flat in the bed. No apparent distress. Heart sounds 1 and 2 noted. Tachycardic. 2/6 systolic murmur at base. Chest clear to auscultation bilaterally. Alert oriented x 3. 2+ bilateral ankle edema noted. Both radial pulses are equal and symmetrical. No radial femoral delay. Risk Stratification Risk Stratification Applicable: No Objective Data Vital Signs: Vital Signs Temp Pulse Resp BP Pulse Ox O2 Del Method 98 F 103 H 16 147/79 H 97 Room Air 09/10/24 08:25 09/10/24 08:25 09/10/24 08:25 09/10/24 10:05 09/10/24 08:25 09/10/24 08:25 Oxygen Delivery Method Room Air Weight: 232 lb 4 oz Body Mass Index (BMI) 44.0 Intake & Output: Intake and Output for Last 24 Hours 09/08/24 09/09/24 09/10/24 23:59 23:59 23:59 Intake Total 1100 / 1100 450 / 450 Output Total 250 / 250 200 / 200 Balance -250 / -250 900 / 900 450 / 450 Lab / Micro Data 09/09/24 18:04 09/09/24 18:04 Labs: Laboratory Results - last 24 hr 09/09/24 11:00: Urine Color Yellow, Urine Clarity Clear, Urine pH 6.5, Ur Specific [place] 1.010, Urine Protein 100 H, Urine Glucose (UA) Normal, Urine Ketones Negative, Urine Occult Blood 25 H, Urine Nitrite Negative, Urine Bilirubin Negative, Urine Urobilinogen Normal, Ur Leukocyte Esterase Negative, Urine RBC 0-5 SEEN, Urine WBC 0-5 SEEN, Ur Squamous Epith Cells 0-5 SEEN, Urine Bacteria 1+, Hyaline Casts 0-5 SEEN, Urine Mucus 0 SEEN 09/09/24 18:04: WBC 6.7, RBC 3.51 L, Hgb 10.4 L, Hct 32.1 L, MCV 91.5, MCH 29.6, MCHC 32.4, RDW Std Deviation 47.1 H, RDW Coeff of Damaso 14.1, Plt Count 179, MPV 9.4, Sodium 139, Potassium 4.7, Chloride 110 H, Carbon Dioxide 25.0, Anion Gap 5, BUN 15, Creatinine 0.90, Estim Creat Clear Calc 99.44, Est GFR (MDRD) Af Amer 92, Est GFR (MDRD) Non-Af 76, BUN/Creatinine Ratio 16.8, Glucose 87, Calcium 8.9, Total Bilirubin 0.40, AST 35, ALT 59 H, Alkaline Phosphatase 86, Total Protein 6.1 L, Albumin 2.3 L, Globulin 3.8, Albumin/Globulin Ratio 0.6 L Micro: Microbiology 09/09/24 11:00 Urine, Clean Catch Urine Culture - Preliminary Mixed Gram Positive Organisms Cardiology Labs/Tests 09/09/24 11:00: Urine Color Yellow, Urine Clarity Clear, Urine pH 6.5, Ur Specific [place] 1.010, Urine Protein 100 H, Urine Glucose (UA) Normal, Urine Ketones Negative, Urine Occult Blood 25 H, Urine Nitrite Negative, Urine Bilirubin Negative, Urine Urobilinogen Normal, Ur Leukocyte Esterase Negative, Urine RBC 0-5 SEEN, Urine WBC 0-5 SEEN 09/09/24 18:04: WBC 6.7, RBC 3.51 L, Hgb 10.4 L, Hct 32.1 L, MCV 91.5, MCH 29.6, MCHC 32.4, Plt Count 179, MPV 9.4, Sodium 139, Potassium 4.7, Chloride 110 H, Carbon Dioxide 25.0, Anion Gap 5, BUN 15, Creatinine 0.90, Est GFR (MDRD) Af Amer 92, Est GFR (MDRD) Non-Af 76, BUN/Creatinine Ratio 16.8, Glucose 87, Calcium 8.9, Total Bilirubin 0.40 Rhythm: EKG: ECHO: Stress Test: Cardiac Cath: PCI: CT Surgery: Holter monitor: EPS: PPM: CXR: Chest CT Scan: Radiography Diagnostic Testing: Radiology Impression Chest CTA 09/09/24 14:22 IMPRESSION: Small bilateral pleural effusions with bibasilar atelectasis slightly more prominent at the right lung base. Electronically Signed: Azam Kruger MD at 14:53 EST ,
[2024-09-10 10:13] LABS: Free T3 2.7 pg/mL (2.18-3.98); T4 Free Direct 1.15 ng/dL (0.76-1.46)
[2024-09-10] MEDS: Nitrofurantoin Macrocrystals 100 MG Capsule PO ×2 (10:25→20:56)
[2024-09-10] MEDS: NIFEdipine 60 MG Tablet PO (10:26)
[2024-09-10] MEDS: Senna/Docusate Sodium 1 Tablet PO (10:34)
[2024-09-10] MEDS: Furosemide 40 MG Tablet PO (10:47)
--- NOTE | 2024-09-10 13:10 | CASEMGMT ---
Patient's RN asked if SW could check in with patient as she is having a hard time with not being able to be discharged today. SW met with patient. Patient's baby and mom were also present. DAVY introduced self and role at [facility]. Patient expressed frustration and wanting to go home. Part of her concern is [facility] is a tier 2 provider with her insurance so she will be responsible for more than if she went to a tier 1 facility. She is also ready to go because she has been at [facility] since last Thursday. Her mom has been caring for her 5 year old and it is a lot for her. SW asked patient if there was anything [facility] could do to help her stay better for her. Patient said she appreciated the nurse movng her to a bigger room and no one around her room is in contact precautions. She said she very much appreciated her nurse listening to her. Patient said her son and will be in later and it is nice to have a bigger room for everyone. Patient said her meds have already been filled and she doesn't understand why that was done if they might change her meds. She wondered why she couldn't go home later if her blood pressure improves. DAVY told patient SW will check with her nurse or charge nurse and get back to them. DAVY spoke with discharge specialist and the meds were called into the pharmacy in case patient left AMA at least she would have meds to take. Both OB and Cardiology have spoken and it is felt patient should remain in the hospital tonight. SW went to patient's room and explained above. Patient thanked DAVY for checking in with her and checking with nurses. Jaqueline HENDERSON
--- NOTE | 2024-09-10 18:14 | NURSING ---
Patient's voiced concerns to this RN regarding hospital stay. He states he thinks all of this [regarding bp control and med regulation] could have been handled differently, and that he is frustrated and feel like they have been given the run around during this hospital stay. He also voices his frustration in not being able to be transferred to the facility of their choice. This RN provided active listening and asked if there was anything this nurse could do to help with the situation. He was provided the Patient Advocate number and was encouraged to use this to voice his and the patient's concerns. quality analyst/technical writer and Production Machine Shop Supervisor notified of same.
[2024-09-10] MEDS: SimETHICONE 80 MG Chewable Tablet PO (20:21)
[2024-09-10] MEDS: 0.9% Saline Lock 10 ML Syringe IV (23:06)
--- NOTE | 2024-09-10 23:25 | NURSING ---
Patient IV was tender, requesting to take out and not wanting to have one back in at this time.
[2024-09-11 05:50] VITALS: BP 164/93; PULSE 92; RESP 18; TEMP 36.6; O2SAT 97
[2024-09-11 05:57] VITALS: PULSE 92
[2024-09-11] MEDS: hydrALAZINE 50 MG Tablet PO ×2 (05:57→14:16)
[2024-09-11] MEDS: Acetaminophen 500 MG Tablet 1000 MG PO ×2 (05:58→10:41)
[2024-09-11] MEDS: Enoxaparin 40 MG/0.4 ML Syringe SC (05:58)
[2024-09-11] MEDS: Labetalol 200 MG Tablet 400 MG PO ×2 (05:58→14:15)
[2024-09-11 08:40] VITALS: BP 126/84; PULSE 90; RESP 16; TEMP 36.2; O2SAT 97
[2024-09-11] MEDS: Nitrofurantoin Macrocrystals 100 MG Capsule PO (08:50)
[2024-09-11] MEDS: NIFEdipine 60 MG Tablet PO (08:50)
[2024-09-11] MEDS: Furosemide 40 MG Tablet PO (08:50)
[2024-09-11] MEDS: Senna/Docusate Sodium 1 Tablet PO (08:53)
[2024-09-11] MEDS: oxyCODONE 5 MG Tablet PO (12:34)
[2024-09-11 13:38] LABS: Anion Gap 7 (5-15); BUN 16 mg/dL (7-18); Calcium,Total 9.9 mg/dL (8.5-10.1); Chloride 109 mmol/L (98-107); Creatinine, Serum 1.07 mg/dL (0.55-1.02); EST Glomerular Filtration Rate 62 mL/min (>60); Est Glom Filt Rate - Afr Amer 75 mL/min (>60); Estimated Creatinine Clearance 83.64 ml/min; Glucose 93 mg/dL (74-106); Potassium 4.3 mmol/L (3.5-5.1); Sodium Level 140 mmol/L (136-145)
[2024-09-11 14:04] VITALS: BP 136/79; PULSE 100; RESP 16; TEMP 36.9; O2SAT 98
[2024-09-11 14:16] VITALS: BP 136/79; PULSE 100
[2024-09-11 15:08] VITALS: BP 125/72; PULSE 91
== END 2024-09-11 16:11 | disposition home or self-care (01) | DRG 787 ==
LOC: WPOUT 13:26 → WP 13:26 → PCU 09-10 11:59
PROVIDERS: Internal Medicine Cardiovascular Disease; Obstetrics & Gynecology; Admitting Provider Registered Nurse; Referring Provider Registered Nurse; Visit Provider Registered Nurse
DX: O14.14 Severe pre-eclampsia complicating childbirth (principal); J90 Pleural effusion, not elsewhere classified; J98.11 Atelectasis; O34.211 Maternal care for low transverse scar from previous cesarean delivery; O86.20 Urinary tract infection following delivery, unspecified; Z79.01 Long term (current) use of anticoagulants; Z37.0 Single live birth; Z79.82 Long term (current) use of aspirin; O99.53 Diseases of the respiratory system complicating the puerperium; Z3A.35 35 weeks gestation of pregnancy; Z14.8 Genetic carrier of other disease
CPT/HCPCS: 36415; 59025; 71046; 71275; 80048; 80053; 81001; 82565; 82570; 84156; 84439; 84443; 84450; 84460; 84481; 84550; 85025; 85027; 86780; 86850; 86900; 86901; 87086; 87088; 93005; 93306; 99221; Q9967; A4216; G0378; J0702; J1940